=== PATIENT | male | born 1965 | race African-American/Black ===

== ENCOUNTER 2020-05-08 12:21 | Inpatient (IN) | payer OTHER ==
[2020-05-08 12:52] VITALS: BMI 29.4
[2020-05-08] MEDS ORDERED: MAG HYDROX/AL HYDROX/SIMETH 30 ML UNIT-DOSE CUP PO PRN (14:03)
[2020-05-08] MEDS ORDERED: MENTHOL/PHENOL 1 EACH UD MM PRN (14:03)
[2020-05-08] MEDS ORDERED: MAGNESIUM CITRATE 300 ML BOTTLE PO PRN (14:03)
[2020-05-08] MEDS ORDERED: ACETAMINOPHEN 325 MG TABLET (FP) PO PRN ×2 (14:03)
[2020-05-08] MEDS ORDERED: MAGNESIUM HYDROX 2400MG/30ML ORAL SUSPENSION 30 ML CUP PO PRN (14:03)
[2020-05-08] MEDS ORDERED: chlordiazePOXIDE HCL 25 MG CAPSULE PO PRN (14:03)
[2020-05-08] MEDS ORDERED: METHOCARBAMOL 500 MG TABLET PO PRN (14:03)
[2020-05-08] MEDS ORDERED: chlordiazePOXIDE HCL 25 MG CAPSULE PO ONE (14:03)
[2020-05-08] MEDS ORDERED: ONDANSETRON *ODT* 4 MG TABLET SL PRN (14:03)
[2020-05-08] MEDS ORDERED: METHADONE HCL 10 MG TABLET (FOR DETOX USE ONLY) PO ONE (14:03)
[2020-05-08] MEDS ORDERED: ALBUTEROL SO4 HFA INHALER IH PRN (14:09)
[2020-05-08] MEDS ORDERED: PATIENT'S OWN MEDICATION (NON-FORMULARY) (Insulin Lispro [Admelog Solostar] 100 UNIT/ML In SQ SCH (14:15)
[2020-05-08] MEDS: metFORMIN HCL 500 MG TABLET (FP) PO SCH (17:08)
[2020-05-08] MEDS: chlordiazePOXIDE HCL 25 MG CAPSULE PO SCH ×2 (17:08→22:10)
[2020-05-08] MEDS: INSULIN SLIDING SCALE (NOVOLOG) 1 VIAL SQ SCH ×2 (17:11→22:12)
[2020-05-08] MEDS: ISOSORBIDE DINITRATE 10 MG TABLET PO SCH (18:00)
[2020-05-08] MEDS: THIAMINE HCL 100 MG TABLET (FP) PO SCH (22:09)
[2020-05-08] MEDS: ROSUVASTATIN CA 40 MG TABLET PO SCH (22:09)
[2020-05-08] MEDS: MELATONIN 5 MG TABLETS PO SCH (22:11)
[2020-05-08] MEDS: INSULIN (LEVEMIR) 100 UNITS/ML UNITS SQ SCH (22:11)
[2020-05-08] MEDS: FUROSEMIDE 40 MG TABLET (FP) PO SCH (22:11)
[2020-05-08] MEDS: DIVALPROEX SODIUM 250 MG TABLET E.C. PO SCH (22:11)
[2020-05-08] MEDS: hydrALAZINE HCL 10 MG TABLET PO SCH (23:00)
[2020-05-09] MEDS: chlordiazePOXIDE HCL 25 MG CAPSULE PO SCH ×4 (05:27→22:47)
[2020-05-09] MEDS: hydrALAZINE HCL 10 MG TABLET PO SCH ×3 (05:31→22:45)
[2020-05-09] MEDS: metFORMIN HCL 500 MG TABLET (FP) PO SCH ×2 (06:05→17:31)
[2020-05-09] MEDS: INSULIN SLIDING SCALE (NOVOLOG) 1 VIAL SQ SCH ×4 (07:05→22:50)
[2020-05-09] MEDS ORDERED: METHADONE HCL 5 MG TABLET (FOR DETOX USE ONLY) ONE (09:19)
[2020-05-09] MEDS ORDERED: METHADONE HCL 10 MG TABLET (FOR DETOX USE ONLY) ONE (09:20)
[2020-05-09] MEDS ORDERED: METHADONE (DETOX) 20 MG, METHADONE (DETOX) 5 MG PO ONE (10:00)
[2020-05-09] MEDS: PRENATAL VITAMINS W/ FOLIC ACID TABLET (FP) PO SCH (10:34)
[2020-05-09] MEDS: ISOSORBIDE DINITRATE 10 MG TABLET PO SCH ×3 (10:35→19:11)
[2020-05-09] MEDS: ROSUVASTATIN CA 40 MG TABLET PO SCH (10:35)
[2020-05-09] MEDS: DIVALPROEX SODIUM 250 MG TABLET E.C. PO SCH ×2 (10:35→22:46)
[2020-05-09] MEDS: FUROSEMIDE 40 MG TABLET (FP) PO SCH ×2 (10:35→22:45)
[2020-05-09] MEDS ORDERED: INSULIN (NOVOLOG) ASPART 100 UNITS/ML 10ML VIAL ONE ×2 (11:28→19:07)
[2020-05-09 12:49] LABS: HEMATOCRIT 41.6 % (35.4-49); HEMOGLOBIN 13.4 GM/dL (11.7-16.9); MCHC 32.3 g/dl (32.0-35.9); MEAN CELL VOLUME 80.5 fl (80-96); MEAN PLT VOLUME 10.6 fl (7.5-11.1); PLATELET COUNT 113 K/MM3 (134-434); RBC 5.17 M/mm3 (4.00-5.60); RDW 18.7 % (11.9-15.9)
[2020-05-09 12:50] LABS: POTASSIUM 4.6 mmol/L (3.5-5.1)
[2020-05-09 12:59] LABS: BLOOD UREA NITROGEN 13.9 mg/dL (7-18); CALCIUM 8.5 mg/dL (8.5-10.1)
[2020-05-09 13:04] LABS: BILIRUBIN,TOTAL 0.5 mg/dL (0.2-1); TOT PROT 6.5 g/dl (6.4-8.2)
[2020-05-09] MEDS: INSULIN (LEVEMIR) 100 UNITS/ML UNITS SQ SCH (22:45)
[2020-05-09] MEDS: MELATONIN 5 MG TABLETS PO SCH (22:45)
[2020-05-09] MEDS: THIAMINE HCL 100 MG TABLET (FP) PO SCH (22:46)
[2020-05-10] MEDS: chlordiazePOXIDE HCL 25 MG CAPSULE PO SCH ×4 (05:39→22:50)
[2020-05-10] MEDS: hydrALAZINE HCL 10 MG TABLET PO SCH ×3 (05:40→22:34)
[2020-05-10] MEDS: metFORMIN HCL 500 MG TABLET (FP) PO SCH ×2 (07:18→17:40)
[2020-05-10] MEDS: INSULIN SLIDING SCALE (NOVOLOG) 1 VIAL SQ SCH ×4 (07:19→22:26)
[2020-05-10] MEDS: ISOSORBIDE DINITRATE 10 MG TABLET PO SCH ×3 (07:25→18:08)
[2020-05-10] MEDS ORDERED: METHADONE HCL 10 MG TABLET (FOR DETOX USE ONLY) PO ONE (10:00)
[2020-05-10] MEDS: ROSUVASTATIN CA 40 MG TABLET PO SCH (11:12)
[2020-05-10] MEDS: PRENATAL VITAMINS W/ FOLIC ACID TABLET (FP) PO SCH (11:35)
[2020-05-10] MEDS: DIVALPROEX SODIUM 250 MG TABLET E.C. PO SCH ×2 (11:35→22:34)
[2020-05-10] MEDS: FUROSEMIDE 40 MG TABLET (FP) PO SCH ×2 (11:35→22:34)
[2020-05-10 11:48] LABS: EPI CELLS 4 /uL (0-25.1); HYALINE CASTS 0 /uL (0-3.1); URINE APPEARANCE CLEAR; URINE BACTERIA 72 /uL (0-1359); URINE BILIRUBIN NEGATIVE (NEGATIVE); URINE COLOR YELLOW; URINE GLUCOSE (UA) NEGATIVE (NEGATIVE); URINE KETONE NEGATIVE (NEGATIVE); URINE LEUK ESTERASE NEGATIVE (NEGATIVE); URINE NITRITE NEGATIVE (NEGATIVE); URINE PROTEIN 1+ (NEGATIVE); URINE RBC 1 /uL (0-23.9); URINE UROBILINOGEN 0.2 mg/dL (0.2-1.0); URINE WBC 19 /uL (0-25.8)
[2020-05-10] MEDS: ROSUVASTATIN CA 20 MG TABLET (FP) PO SCH (13:19)
[2020-05-10] MEDS ORDERED: LACTULOSE 20 GM/30 ML UDC (FOR ORAL USE ONLY) PO ONE (15:34)
[2020-05-10] MEDS ORDERED: INSULIN (NOVOLOG) ASPART 100 UNITS/ML 10ML VIAL ONE (22:30)
[2020-05-10] MEDS: INSULIN (LEVEMIR) 100 UNITS/ML UNITS SQ SCH (22:32)
[2020-05-10] MEDS: THIAMINE HCL 100 MG TABLET (FP) PO SCH (22:34)
[2020-05-10] MEDS: LACTULOSE 20 GM/30 ML UDC (FOR ORAL USE ONLY) PO SCH (22:36)
[2020-05-10] MEDS: MELATONIN 5 MG TABLETS PO SCH (22:49)
[2020-05-11] MEDS ORDERED: chlordiazePOXIDE HCL 10 MG CAPSULE PO PRN
[2020-05-11] MEDS: hydrALAZINE HCL 10 MG TABLET PO SCH ×3 (06:14→22:38)
[2020-05-11] MEDS: chlordiazePOXIDE HCL 10 MG CAPSULE PO SCH ×4 (06:14→22:38)
[2020-05-11] MEDS: LACTULOSE 20 GM/30 ML UDC (FOR ORAL USE ONLY) PO SCH ×4 (06:14→22:38)
[2020-05-11] MEDS: metFORMIN HCL 500 MG TABLET (FP) PO SCH ×2 (06:15→17:45)
[2020-05-11] MEDS: INSULIN SLIDING SCALE (NOVOLOG) 1 VIAL SQ SCH ×4 (07:10→22:39)
[2020-05-11] MEDS: ISOSORBIDE DINITRATE 10 MG TABLET PO SCH ×3 (08:45→17:50)
[2020-05-11] MEDS ORDERED: METHADONE HCL 5 MG TABLET (FOR DETOX USE ONLY) ONE (09:23)
[2020-05-11] MEDS ORDERED: METHADONE HCL 10 MG TABLET (FOR DETOX USE ONLY) ONE (09:24)
[2020-05-11] MEDS ORDERED: METHADONE (DETOX) 10 MG, METHADONE (DETOX) 5 MG PO ONE (10:00)
[2020-05-11] MEDS: DIVALPROEX SODIUM 250 MG TABLET E.C. PO SCH ×2 (10:41→22:38)
[2020-05-11] MEDS: ASPIRIN 81 MG CHEWABLE TABLETS PO SCH (10:41)
[2020-05-11] MEDS: CLOPIDOGREL BISULFATE 75 MG TABLET (FP) PO SCH (10:41)
[2020-05-11] MEDS: FUROSEMIDE 40 MG TABLET (FP) PO SCH (10:41)
[2020-05-11] MEDS: ROSUVASTATIN CA 20 MG TABLET (FP) PO SCH (10:41)
[2020-05-11] MEDS: PRENATAL VITAMINS W/ FOLIC ACID TABLET (FP) PO SCH (10:43)
[2020-05-11] MEDS ORDERED: INSULIN (NOVOLOG) ASPART 100 UNITS/ML 10ML VIAL ONE ×2 (12:15→17:00)
[2020-05-11 13:53] LABS: INR 0.98 (0.83-1.09); PROTHROMBIN TIME (PATIENT) 12.1 SEC (9.7-13.0)
[2020-05-11 14:19] LABS: POTASSIUM 4.9 mmol/L (3.5-5.1)
[2020-05-11 14:26] LABS: CALCIUM 9.2 mg/dL (8.5-10.1)
[2020-05-11 14:27] LABS: ALBUMIN 3.3 g/dl (3.4-5.0); BLOOD UREA NITROGEN 19.1 mg/dL (7-18)
[2020-05-11 14:30] LABS: BILIRUBIN,TOTAL 0.4 mg/dL (0.2-1); CREATININE 1.2 mg/dL (0.55-1.3); TOT PROT 7.1 g/dl (6.4-8.2)
[2020-05-11] MEDS ORDERED: FUROSEMIDE 40 MG TABLET (FP) PO ONE (18:00)
[2020-05-11] MEDS: INSULIN (LEVEMIR) 100 UNITS/ML UNITS SQ SCH (22:38)
[2020-05-11] MEDS: THIAMINE HCL 100 MG TABLET (FP) PO SCH (22:38)
[2020-05-11] MEDS: MELATONIN 5 MG TABLETS PO SCH (22:39)
[2020-05-12] MEDS: chlordiazePOXIDE HCL 10 MG CAPSULE PO SCH ×2 (06:42→19:04)
[2020-05-12] MEDS: metFORMIN HCL 500 MG TABLET (FP) PO SCH ×2 (06:43→19:02)
[2020-05-12] MEDS: hydrALAZINE HCL 10 MG TABLET PO SCH ×3 (06:43→22:09)
[2020-05-12] MEDS: FUROSEMIDE 40 MG TABLET (FP) PO SCH ×2 (06:44→13:35)
[2020-05-12] MEDS: INSULIN SLIDING SCALE (NOVOLOG) 1 VIAL SQ SCH ×4 (06:47→22:15)
[2020-05-12] MEDS ORDERED: METHADONE HCL 10 MG TABLET (FOR DETOX USE ONLY) PO ONE (10:00)
[2020-05-12] MEDS: ISOSORBIDE DINITRATE 10 MG TABLET PO SCH ×3 (11:07→19:02)
[2020-05-12] MEDS: DIVALPROEX SODIUM 250 MG TABLET E.C. PO SCH ×2 (11:07→22:09)
[2020-05-12] MEDS: LACTULOSE 20 GM/30 ML UDC (FOR ORAL USE ONLY) PO SCH ×4 (11:07→22:08)
[2020-05-12] MEDS: CLOPIDOGREL BISULFATE 75 MG TABLET (FP) PO SCH (11:07)
[2020-05-12] MEDS: PRENATAL VITAMINS W/ FOLIC ACID TABLET (FP) PO SCH (11:07)
[2020-05-12] MEDS: ASPIRIN 81 MG CHEWABLE TABLETS PO SCH (11:07)
[2020-05-12] MEDS: ROSUVASTATIN CA 20 MG TABLET (FP) PO SCH (11:08)
[2020-05-12] MEDS: THIAMINE HCL 100 MG TABLET (FP) PO SCH (22:09)
[2020-05-12] MEDS: MELATONIN 5 MG TABLETS PO SCH (22:09)
[2020-05-12] MEDS: INSULIN (LEVEMIR) 100 UNITS/ML UNITS SQ SCH (22:16)
[2020-05-13] MEDS ORDERED: chlordiazePOXIDE HCL 10 MG CAPSULE PO ONE (05:00)
[2020-05-13] MEDS ORDERED: METHADONE HCL 5 MG TABLET (FOR DETOX USE ONLY) PO ONE (06:00)
[2020-05-13] MEDS: hydrALAZINE HCL 10 MG TABLET PO SCH ×3 (08:05→23:19)
[2020-05-13] MEDS: ISOSORBIDE DINITRATE 10 MG TABLET PO SCH ×3 (08:06→17:55)
[2020-05-13] MEDS: FUROSEMIDE 40 MG TABLET (FP) PO SCH ×2 (08:06→13:16)
[2020-05-13] MEDS: metFORMIN HCL 500 MG TABLET (FP) PO SCH ×2 (08:06→17:52)
[2020-05-13] MEDS: INSULIN SLIDING SCALE (NOVOLOG) 1 VIAL SQ SCH ×4 (08:06→23:21)
[2020-05-13] MEDS: PRENATAL VITAMINS W/ FOLIC ACID TABLET (FP) PO SCH (10:47)
[2020-05-13] MEDS: DIVALPROEX SODIUM 250 MG TABLET E.C. PO SCH ×2 (10:48→23:19)
[2020-05-13] MEDS: ASPIRIN 81 MG CHEWABLE TABLETS PO SCH (10:48)
[2020-05-13] MEDS: CLOPIDOGREL BISULFATE 75 MG TABLET (FP) PO SCH (10:49)
[2020-05-13] MEDS: LACTULOSE 20 GM/30 ML UDC (FOR ORAL USE ONLY) PO SCH ×4 (10:49→23:20)
[2020-05-13] MEDS: ROSUVASTATIN CA 20 MG TABLET (FP) PO SCH (13:16)
[2020-05-13] MEDS ORDERED: INSULIN (NOVOLOG) ASPART 100 UNITS/ML 10ML VIAL ONE ×2 (17:52→23:25)
[2020-05-13] MEDS: THIAMINE HCL 100 MG TABLET (FP) PO SCH (23:19)
[2020-05-13] MEDS: MELATONIN 5 MG TABLETS PO SCH (23:21)
[2020-05-13] MEDS: INSULIN (LEVEMIR) 100 UNITS/ML UNITS SQ SCH (23:21)
[2020-05-14] MEDS: hydrALAZINE HCL 10 MG TABLET PO SCH ×2 (05:21→14:11)
[2020-05-14] MEDS: FUROSEMIDE 40 MG TABLET (FP) PO SCH ×2 (05:21→14:11)
[2020-05-14] MEDS: metFORMIN HCL 500 MG TABLET (FP) PO SCH (06:52)
[2020-05-14] MEDS: INSULIN SLIDING SCALE (NOVOLOG) 1 VIAL SQ SCH ×2 (06:55→11:32)
[2020-05-14] MEDS ORDERED: INSULIN (NOVOLOG) ASPART 100 UNITS/ML 10ML VIAL ONE ×2 (06:55→11:23)
[2020-05-14] MEDS: ISOSORBIDE DINITRATE 10 MG TABLET PO SCH ×2 (08:55→13:10)
[2020-05-14] MEDS: ASPIRIN 81 MG CHEWABLE TABLETS PO SCH (10:12)
[2020-05-14] MEDS: ROSUVASTATIN CA 20 MG TABLET (FP) PO SCH (10:13)
[2020-05-14] MEDS: PRENATAL VITAMINS W/ FOLIC ACID TABLET (FP) PO SCH (10:13)
[2020-05-14] MEDS: DIVALPROEX SODIUM 250 MG TABLET E.C. PO SCH (10:13)
[2020-05-14] MEDS: LACTULOSE 20 GM/30 ML UDC (FOR ORAL USE ONLY) PO SCH ×2 (10:13→14:11)
[2020-05-14] MEDS: CLOPIDOGREL BISULFATE 75 MG TABLET (FP) PO SCH (10:13)
[2020-05-14 14:21] VITALS: BP 158/92; PULSE 101; TEMP 98.3
== END 2020-05-14 14:30 | disposition other institution (70) | DRG 773 ==
LOC: YASAS 12:21 → Y6N 15:17
PROVIDERS: ADMIT Allergy & Immunology; ATTEND Allergy & Immunology
PROC: HZ2ZZZZ Detoxification Services for Substance Abuse Treatment (ICD-10-PCS; principal; 2020-05-08)
DX: F11.23 Opioid dependence with withdrawal (principal); F10.230 Alcohol dependence with withdrawal, uncomplicated; F14.20 Cocaine dependence, uncomplicated; F17.210 Nicotine dependence, cigarettes, uncomplicated; F25.9 Schizoaffective disorder, unspecified; F31.9 Bipolar disorder, unspecified; F19.282 Other psychoactive substance dependence with psychoactive substance-induced sleep disorder; D69.6 Thrombocytopenia, unspecified; E78.5 Hyperlipidemia, unspecified; E11.9 Type 2 diabetes mellitus without complications; Z79.4 Long term (current) use of insulin; I25.10 Atherosclerotic heart disease of native coronary artery without angina pectoris; I11.0 Hypertensive heart disease with heart failure; I50.9 Heart failure, unspecified; Z95.1 Presence of aortocoronary bypass graft; Z95.5 Presence of coronary angioplasty implant and graft; Z95.810 Presence of automatic (implantable) cardiac defibrillator; J44.9 Chronic obstructive pulmonary disease, unspecified; G47.39 Other sleep apnea; M54.5 Low back pain; G89.29 Other chronic pain; R79.89 Other specified abnormal findings of blood chemistry; Z86.69 Personal history of other diseases of the nervous system and sense organs; Z56.0 Unemployment, unspecified; Z59.0 Homelessness
CPT/HCPCS: 36415; 80053; 81003; 82140; 82962; 85027; 85610; 86780; C9803; U0003

== ENCOUNTER 2020-05-14 15:02 | Inpatient (IN) | payer OTHER ==
[2020-05-14] MEDS ORDERED: NICOTINE POLACRILEX 2 MG GUM BUC PRN (15:31)
[2020-05-14] MEDS ORDERED: IBUPROFEN 400 MG TABLET (FP) PO PRN (15:31)
[2020-05-14] MEDS ORDERED: P-EPHED 60MG/TRIPROLIDI 2.5MG TABLET PO PRN (15:31)
[2020-05-14] MEDS ORDERED: ACETAMINOPHEN 325 MG TABLET (FP) PO PRN (15:31)
[2020-05-14] MEDS ORDERED: MENTHOL/PHENOL 1 EACH UD MM PRN (15:31)
[2020-05-14] MEDS ORDERED: MAGNESIUM CITRATE 300 ML BOTTLE PO PRN (15:31)
[2020-05-14] MEDS ORDERED: MAGNESIUM HYDROX 2400MG/30ML ORAL SUSPENSION 30 ML CUP PO PRN (15:31)
[2020-05-14] MEDS ORDERED: guaiFENesin 200 MG/10 ML 10 ML UNIT-DOSE CUPS PO PRN (15:31)
[2020-05-14] MEDS ORDERED: MAG HYDROX/AL HYDROX/SIMETH 30 ML UNIT-DOSE CUP PO PRN (15:31)
[2020-05-14] MEDS ORDERED: LOPERAMIDE HCL 2 MG CAPSULE PO PRN (15:31)
[2020-05-14] MEDS ORDERED: ALBUTEROL SO4 HFA INHALER IH PRN (15:50)
[2020-05-14] MEDS: metFORMIN HCL 500 MG TABLET (FP) PO SCH (16:51)
[2020-05-14] MEDS ORDERED: INSULIN (NOVOLOG) ASPART 100 UNITS/ML 10ML VIAL ONE (16:53)
[2020-05-14] MEDS: INSULIN SLIDING SCALE (NOVOLOG) 1 VIAL SQ SCH ×2 (16:54→21:02)
[2020-05-14] MEDS: LACTULOSE 20 GM/30 ML UDC (FOR ORAL USE ONLY) PO SCH ×2 (17:35→21:01)
[2020-05-14] MEDS ORDERED: ROSUVASTATIN CA 10 MG TABLET (FP) ONE (20:37)
[2020-05-14] MEDS: DIVALPROEX SODIUM 250 MG TABLET E.C. PO SCH (21:00)
[2020-05-14] MEDS: THIAMINE HCL 100 MG TABLET (FP) PO SCH (21:00)
[2020-05-14] MEDS: ISOSORBIDE DINITRATE 10 MG TABLET PO SCH (21:00)
[2020-05-14] MEDS: hydrALAZINE HCL 10 MG TABLET PO SCH (21:01)
[2020-05-14] MEDS: ROSUVASTATIN CA 20 MG TABLET (FP) PO SCH (21:01)
[2020-05-14] MEDS: MELATONIN 5 MG TABLETS PO SCH (21:02)
[2020-05-14] MEDS: INSULIN (LEVEMIR) 100 UNITS/ML UNITS SQ SCH (21:03)
[2020-05-14] MEDS ORDERED: FUROSEMIDE 40 MG TABLET (FP) PO SCH (22:00)
[2020-05-15] MEDS: metFORMIN HCL 500 MG TABLET (FP) PO SCH ×2 (06:21→16:46)
[2020-05-15] MEDS: ISOSORBIDE DINITRATE 10 MG TABLET PO SCH ×3 (06:22→21:10)
[2020-05-15] MEDS: hydrALAZINE HCL 10 MG TABLET PO SCH ×3 (06:22→21:10)
[2020-05-15] MEDS: FUROSEMIDE 40 MG TABLET (FP) PO SCH ×2 (06:22→14:16)
[2020-05-15] MEDS: INSULIN SLIDING SCALE (NOVOLOG) 1 VIAL SQ SCH ×4 (06:23→21:07)
[2020-05-15] MEDS ORDERED: ROSUVASTATIN CA 40 MG TABLET PO SCH (10:00)
[2020-05-15] MEDS: CLOPIDOGREL BISULFATE 75 MG TABLET (FP) PO SCH (10:13)
[2020-05-15] MEDS: NICOTINE 7 MG/24 HOURS TOPICAL PATCH TD SCH (10:13)
[2020-05-15] MEDS: DIVALPROEX SODIUM 250 MG TABLET E.C. PO SCH ×2 (10:13→21:10)
[2020-05-15] MEDS: ASPIRIN 81 MG CHEWABLE TABLETS PO SCH (10:13)
[2020-05-15] MEDS: LACTULOSE 20 GM/30 ML UDC (FOR ORAL USE ONLY) PO SCH ×4 (10:13→21:10)
[2020-05-15] MEDS: PRENATAL VITAMINS W/ FOLIC ACID TABLET (FP) PO SCH (10:14)
[2020-05-15] MEDS ORDERED: INSULIN (NOVOLOG) ASPART 100 UNITS/ML 10ML VIAL ONE ×3 (12:05→22:07)
[2020-05-15] MEDS ORDERED: ROSUVASTATIN CA 10 MG TABLET (FP) ONE (19:34)
[2020-05-15] MEDS: METHOCARBAMOL 500 MG TABLET PO PRN (20:22)
[2020-05-15] MEDS: INSULIN (LEVEMIR) 100 UNITS/ML UNITS SQ SCH (21:06)
[2020-05-15] MEDS: ROSUVASTATIN CA 20 MG TABLET (FP) PO SCH (21:10)
[2020-05-15] MEDS: THIAMINE HCL 100 MG TABLET (FP) PO SCH (21:10)
[2020-05-15] MEDS: hydrOXYzine PAMOATE 25 MG CAPSULE (FP) PO PRN (21:10)
[2020-05-15] MEDS: MELATONIN 5 MG TABLETS PO SCH (21:11)
[2020-05-16] MEDS: hydrALAZINE HCL 10 MG TABLET PO SCH ×3 (07:06→22:06)
[2020-05-16] MEDS: metFORMIN HCL 500 MG TABLET (FP) PO SCH ×2 (07:06→18:35)
[2020-05-16] MEDS: FUROSEMIDE 40 MG TABLET (FP) PO SCH ×2 (07:06→14:16)
[2020-05-16] MEDS: ISOSORBIDE DINITRATE 10 MG TABLET PO SCH ×3 (07:06→22:06)
[2020-05-16] MEDS: INSULIN SLIDING SCALE (NOVOLOG) 1 VIAL SQ SCH ×4 (07:07→22:02)
[2020-05-16] MEDS: PRENATAL VITAMINS W/ FOLIC ACID TABLET (FP) PO SCH (09:41)
[2020-05-16] MEDS: NICOTINE 7 MG/24 HOURS TOPICAL PATCH TD SCH (09:42)
[2020-05-16] MEDS: CLOPIDOGREL BISULFATE 75 MG TABLET (FP) PO SCH (09:42)
[2020-05-16] MEDS: DIVALPROEX SODIUM 250 MG TABLET E.C. PO SCH ×2 (09:42→22:05)
[2020-05-16] MEDS: LACTULOSE 20 GM/30 ML UDC (FOR ORAL USE ONLY) PO SCH ×4 (09:43→22:05)
[2020-05-16] MEDS: ASPIRIN 81 MG CHEWABLE TABLETS PO SCH (09:43)
[2020-05-16] MEDS ORDERED: INSULIN (NOVOLOG) ASPART 100 UNITS/ML 10ML VIAL ONE (11:57)
[2020-05-16] MEDS: INSULIN (LEVEMIR) 100 UNITS/ML UNITS SQ SCH (22:04)
[2020-05-16] MEDS: MELATONIN 5 MG TABLETS PO SCH (22:05)
[2020-05-16] MEDS: hydrOXYzine PAMOATE 25 MG CAPSULE (FP) PO PRN (22:05)
[2020-05-16] MEDS: METHOCARBAMOL 500 MG TABLET PO PRN (22:05)
[2020-05-16] MEDS: THIAMINE HCL 100 MG TABLET (FP) PO SCH (22:06)
[2020-05-16] MEDS: ROSUVASTATIN CA 20 MG TABLET (FP) PO SCH (22:06)
[2020-05-17] MEDS: hydrALAZINE HCL 10 MG TABLET PO SCH ×3 (06:57→21:18)
[2020-05-17] MEDS: metFORMIN HCL 500 MG TABLET (FP) PO SCH ×2 (06:57→16:40)
[2020-05-17] MEDS: ISOSORBIDE DINITRATE 10 MG TABLET PO SCH ×3 (06:57→21:20)
[2020-05-17] MEDS: FUROSEMIDE 40 MG TABLET (FP) PO SCH ×2 (06:58→13:32)
[2020-05-17] MEDS: INSULIN SLIDING SCALE (NOVOLOG) 1 VIAL SQ SCH ×4 (07:06→21:14)
[2020-05-17] MEDS ORDERED: INSULIN (NOVOLOG) ASPART 100 UNITS/ML 10ML VIAL ONE ×3 (07:06→16:35)
[2020-05-17] MEDS: DIVALPROEX SODIUM 250 MG TABLET E.C. PO SCH ×2 (10:26→21:20)
[2020-05-17] MEDS: PRENATAL VITAMINS W/ FOLIC ACID TABLET (FP) PO SCH (10:26)
[2020-05-17] MEDS: CLOPIDOGREL BISULFATE 75 MG TABLET (FP) PO SCH (10:26)
[2020-05-17] MEDS: LACTULOSE 20 GM/30 ML UDC (FOR ORAL USE ONLY) PO SCH ×4 (10:27→21:22)
[2020-05-17] MEDS: ASPIRIN 81 MG CHEWABLE TABLETS PO SCH (10:27)
[2020-05-17] MEDS: NICOTINE 7 MG/24 HOURS TOPICAL PATCH TD SCH (10:27)
[2020-05-17] MEDS: INSULIN (LEVEMIR) 100 UNITS/ML UNITS SQ SCH (21:14)
[2020-05-17] MEDS: THIAMINE HCL 100 MG TABLET (FP) PO SCH (21:18)
[2020-05-17] MEDS: ROSUVASTATIN CA 20 MG TABLET (FP) PO SCH (21:18)
[2020-05-17] MEDS: MELATONIN 5 MG TABLETS PO SCH (21:20)
[2020-05-18] MEDS: FUROSEMIDE 40 MG TABLET (FP) PO SCH ×2 (06:22→14:11)
[2020-05-18] MEDS: ISOSORBIDE DINITRATE 10 MG TABLET PO SCH ×3 (06:22→21:38)
[2020-05-18] MEDS: metFORMIN HCL 500 MG TABLET (FP) PO SCH ×2 (06:22→16:48)
[2020-05-18] MEDS: hydrALAZINE HCL 10 MG TABLET PO SCH ×3 (06:23→21:38)
[2020-05-18] MEDS: INSULIN SLIDING SCALE (NOVOLOG) 1 VIAL SQ SCH ×4 (06:24→21:36)
[2020-05-18] MEDS: DIVALPROEX SODIUM 250 MG TABLET E.C. PO SCH ×2 (10:12→21:38)
[2020-05-18] MEDS: PRENATAL VITAMINS W/ FOLIC ACID TABLET (FP) PO SCH (10:12)
[2020-05-18] MEDS: NICOTINE 7 MG/24 HOURS TOPICAL PATCH TD SCH (10:12)
[2020-05-18] MEDS: CLOPIDOGREL BISULFATE 75 MG TABLET (FP) PO SCH (10:12)
[2020-05-18] MEDS: ASPIRIN 81 MG CHEWABLE TABLETS PO SCH (10:12)
[2020-05-18] MEDS: LACTULOSE 20 GM/30 ML UDC (FOR ORAL USE ONLY) PO SCH ×4 (10:12→21:38)
[2020-05-18] MEDS ORDERED: INSULIN (NOVOLOG) ASPART 100 UNITS/ML 10ML VIAL ONE ×2 (11:35→16:44)
[2020-05-18] MEDS: INSULIN (LEVEMIR) 100 UNITS/ML UNITS SQ SCH (21:37)
[2020-05-18] MEDS: hydrOXYzine PAMOATE 25 MG CAPSULE (FP) PO PRN (21:38)
[2020-05-18] MEDS: ROSUVASTATIN CA 20 MG TABLET (FP) PO SCH (21:38)
[2020-05-18] MEDS: METHOCARBAMOL 500 MG TABLET PO PRN (21:38)
[2020-05-18] MEDS: MELATONIN 5 MG TABLETS PO SCH (21:38)
[2020-05-18] MEDS: THIAMINE HCL 100 MG TABLET (FP) PO SCH (21:38)
[2020-05-19] MEDS: metFORMIN HCL 500 MG TABLET (FP) PO SCH ×2 (06:34→16:35)
[2020-05-19] MEDS: ISOSORBIDE DINITRATE 10 MG TABLET PO SCH ×3 (06:35→21:22)
[2020-05-19] MEDS: FUROSEMIDE 40 MG TABLET (FP) PO SCH ×2 (06:35→14:57)
[2020-05-19] MEDS: hydrALAZINE HCL 10 MG TABLET PO SCH ×3 (06:35→21:22)
[2020-05-19] MEDS: INSULIN SLIDING SCALE (NOVOLOG) 1 VIAL SQ SCH ×4 (06:37→21:27)
[2020-05-19] MEDS: NICOTINE 7 MG/24 HOURS TOPICAL PATCH TD SCH (10:14)
[2020-05-19] MEDS: PRENATAL VITAMINS W/ FOLIC ACID TABLET (FP) PO SCH (10:14)
[2020-05-19] MEDS: LACTULOSE 20 GM/30 ML UDC (FOR ORAL USE ONLY) PO SCH ×4 (10:14→21:23)
[2020-05-19] MEDS: ASPIRIN 81 MG CHEWABLE TABLETS PO SCH (10:14)
[2020-05-19] MEDS: CLOPIDOGREL BISULFATE 75 MG TABLET (FP) PO SCH (10:14)
[2020-05-19] MEDS: DIVALPROEX SODIUM 250 MG TABLET E.C. PO SCH ×2 (10:14→21:22)
[2020-05-19] MEDS ORDERED: INSULIN (NOVOLOG) ASPART 100 UNITS/ML 10ML VIAL ONE (11:58)
[2020-05-19] MEDS ORDERED: ROSUVASTATIN CA 10 MG TABLET (FP) ONE (20:29)
[2020-05-19] MEDS: MELATONIN 5 MG TABLETS PO SCH (21:22)
[2020-05-19] MEDS: ROSUVASTATIN CA 20 MG TABLET (FP) PO SCH (21:22)
[2020-05-19] MEDS: THIAMINE HCL 100 MG TABLET (FP) PO SCH (21:23)
[2020-05-19] MEDS: INSULIN (LEVEMIR) 100 UNITS/ML UNITS SQ SCH (21:26)
[2020-05-20] MEDS: FUROSEMIDE 40 MG TABLET (FP) PO SCH ×2 (06:18→14:51)
[2020-05-20] MEDS: metFORMIN HCL 500 MG TABLET (FP) PO SCH ×2 (06:19→16:58)
[2020-05-20] MEDS: hydrALAZINE HCL 10 MG TABLET PO SCH ×3 (06:19→21:29)
[2020-05-20] MEDS: ISOSORBIDE DINITRATE 10 MG TABLET PO SCH ×3 (06:19→21:28)
[2020-05-20] MEDS: INSULIN SLIDING SCALE (NOVOLOG) 1 VIAL SQ SCH ×4 (07:10→21:36)
[2020-05-20] MEDS: DIVALPROEX SODIUM 250 MG TABLET E.C. PO SCH ×2 (10:19→21:27)
[2020-05-20] MEDS: PRENATAL VITAMINS W/ FOLIC ACID TABLET (FP) PO SCH (10:19)
[2020-05-20] MEDS: LACTULOSE 20 GM/30 ML UDC (FOR ORAL USE ONLY) PO SCH ×4 (10:19→21:30)
[2020-05-20] MEDS: ASPIRIN 81 MG CHEWABLE TABLETS PO SCH (10:19)
[2020-05-20] MEDS: CLOPIDOGREL BISULFATE 75 MG TABLET (FP) PO SCH (10:20)
[2020-05-20] MEDS: NICOTINE 7 MG/24 HOURS TOPICAL PATCH TD SCH (10:20)
[2020-05-20] MEDS: hydrOXYzine PAMOATE 25 MG CAPSULE (FP) PO PRN ×2 (10:20→21:27)
[2020-05-20] MEDS ORDERED: INSULIN (NOVOLOG) ASPART 100 UNITS/ML 10ML VIAL ONE ×4 (12:12→21:44)
[2020-05-20] MEDS: THIAMINE HCL 100 MG TABLET (FP) PO SCH (21:27)
[2020-05-20] MEDS: METHOCARBAMOL 500 MG TABLET PO PRN (21:27)
[2020-05-20] MEDS: MELATONIN 5 MG TABLETS PO SCH (21:28)
[2020-05-20] MEDS: ROSUVASTATIN CA 20 MG TABLET (FP) PO SCH (21:29)
[2020-05-20] MEDS: INSULIN (LEVEMIR) 100 UNITS/ML UNITS SQ SCH (21:39)
[2020-05-20] MEDS ORDERED: INSULIN (LEVEMIR) 100 UNITS/ML UNITS SQ ONE (21:44)
[2020-05-21] MEDS: metFORMIN HCL 500 MG TABLET (FP) PO SCH ×2 (06:18→16:27)
[2020-05-21] MEDS: ISOSORBIDE DINITRATE 10 MG TABLET PO SCH ×3 (06:19→21:38)
[2020-05-21] MEDS: FUROSEMIDE 40 MG TABLET (FP) PO SCH ×2 (06:19→14:25)
[2020-05-21] MEDS: INSULIN SLIDING SCALE (NOVOLOG) 1 VIAL SQ SCH ×4 (06:20→21:42)
[2020-05-21] MEDS: hydrALAZINE HCL 10 MG TABLET PO SCH ×3 (06:20→21:38)
[2020-05-21] MEDS: ASPIRIN 81 MG CHEWABLE TABLETS PO SCH (10:02)
[2020-05-21] MEDS: CLOPIDOGREL BISULFATE 75 MG TABLET (FP) PO SCH (10:02)
[2020-05-21] MEDS: hydrOXYzine PAMOATE 25 MG CAPSULE (FP) PO PRN ×2 (10:02→21:38)
[2020-05-21] MEDS: LACTULOSE 20 GM/30 ML UDC (FOR ORAL USE ONLY) PO SCH ×4 (10:02→21:37)
[2020-05-21] MEDS: DIVALPROEX SODIUM 250 MG TABLET E.C. PO SCH ×2 (10:02→21:39)
[2020-05-21] MEDS: PRENATAL VITAMINS W/ FOLIC ACID TABLET (FP) PO SCH (10:02)
[2020-05-21] MEDS: NICOTINE 7 MG/24 HOURS TOPICAL PATCH TD SCH (10:03)
[2020-05-21] MEDS ORDERED: INSULIN (NOVOLOG) ASPART 100 UNITS/ML 10ML VIAL ONE ×3 (11:43→21:44)
[2020-05-21] MEDS: ROSUVASTATIN CA 20 MG TABLET (FP) PO SCH (21:38)
[2020-05-21] MEDS: THIAMINE HCL 100 MG TABLET (FP) PO SCH (21:39)
[2020-05-21] MEDS: MELATONIN 5 MG TABLETS PO SCH (21:39)
[2020-05-21] MEDS: INSULIN (LEVEMIR) 100 UNITS/ML UNITS SQ SCH (21:45)
[2020-05-22] MEDS: FUROSEMIDE 40 MG TABLET (FP) PO SCH ×2 (06:29→14:12)
[2020-05-22] MEDS: hydrALAZINE HCL 10 MG TABLET PO SCH ×3 (06:29→22:15)
[2020-05-22] MEDS: metFORMIN HCL 500 MG TABLET (FP) PO SCH ×2 (06:29→17:12)
[2020-05-22] MEDS: ISOSORBIDE DINITRATE 10 MG TABLET PO SCH ×3 (06:29→22:14)
[2020-05-22] MEDS: INSULIN SLIDING SCALE (NOVOLOG) 1 VIAL SQ SCH ×4 (06:31→22:14)
[2020-05-22] MEDS: LACTULOSE 20 GM/30 ML UDC (FOR ORAL USE ONLY) PO SCH ×4 (10:54→22:15)
[2020-05-22] MEDS: DIVALPROEX SODIUM 250 MG TABLET E.C. PO SCH ×2 (10:54→22:13)
[2020-05-22] MEDS: ASPIRIN 81 MG CHEWABLE TABLETS PO SCH (10:54)
[2020-05-22] MEDS: CLOPIDOGREL BISULFATE 75 MG TABLET (FP) PO SCH (10:54)
[2020-05-22] MEDS: PRENATAL VITAMINS W/ FOLIC ACID TABLET (FP) PO SCH (10:55)
[2020-05-22] MEDS ORDERED: INSULIN (NOVOLOG) ASPART 100 UNITS/ML 10ML VIAL ONE ×3 (11:57→22:17)
[2020-05-22] MEDS: THIAMINE HCL 100 MG TABLET (FP) PO SCH (22:13)
[2020-05-22] MEDS: MELATONIN 5 MG TABLETS PO SCH (22:14)
[2020-05-22] MEDS: INSULIN (LEVEMIR) 100 UNITS/ML UNITS SQ SCH (22:14)
[2020-05-22] MEDS: ROSUVASTATIN CA 20 MG TABLET (FP) PO SCH (22:19)
[2020-05-23] MEDS: ISOSORBIDE DINITRATE 10 MG TABLET PO SCH ×3 (06:40→23:00)
[2020-05-23] MEDS: INSULIN SLIDING SCALE (NOVOLOG) 1 VIAL SQ SCH ×4 (06:40→21:03)
[2020-05-23] MEDS: metFORMIN HCL 500 MG TABLET (FP) PO SCH ×2 (06:40→16:35)
[2020-05-23] MEDS: FUROSEMIDE 40 MG TABLET (FP) PO SCH ×2 (06:40→14:11)
[2020-05-23] MEDS: hydrALAZINE HCL 10 MG TABLET PO SCH ×3 (06:40→23:00)
[2020-05-23] MEDS ORDERED: INSULIN (NOVOLOG) ASPART 100 UNITS/ML 10ML VIAL ONE ×2 (12:02→21:01)
[2020-05-23] MEDS: DIVALPROEX SODIUM 250 MG TABLET E.C. PO SCH ×2 (12:54→21:00)
[2020-05-23] MEDS: LACTULOSE 20 GM/30 ML UDC (FOR ORAL USE ONLY) PO SCH ×4 (12:54→21:00)
[2020-05-23] MEDS: ASPIRIN 81 MG CHEWABLE TABLETS PO SCH (12:54)
[2020-05-23] MEDS: PRENATAL VITAMINS W/ FOLIC ACID TABLET (FP) PO SCH (12:55)
[2020-05-23] MEDS: CLOPIDOGREL BISULFATE 75 MG TABLET (FP) PO SCH (12:55)
[2020-05-23] MEDS ORDERED: ROSUVASTATIN CA 10 MG TABLET (FP) ONE (19:14)
[2020-05-23] MEDS: MELATONIN 5 MG TABLETS PO SCH (21:00)
[2020-05-23] MEDS: ROSUVASTATIN CA 20 MG TABLET (FP) PO SCH (21:00)
[2020-05-23] MEDS: THIAMINE HCL 100 MG TABLET (FP) PO SCH (21:00)
[2020-05-23] MEDS: INSULIN (LEVEMIR) 100 UNITS/ML UNITS SQ SCH (21:04)
[2020-05-24] MEDS: INSULIN SLIDING SCALE (NOVOLOG) 1 VIAL SQ SCH (06:25)
[2020-05-24] MEDS: ISOSORBIDE DINITRATE 10 MG TABLET PO SCH (06:26)
[2020-05-24] MEDS: hydrALAZINE HCL 10 MG TABLET PO SCH (06:26)
[2020-05-24] MEDS: metFORMIN HCL 500 MG TABLET (FP) PO SCH (06:26)
[2020-05-24] MEDS: FUROSEMIDE 40 MG TABLET (FP) PO SCH (06:26)
[2020-05-24 08:22] VITALS: BP 156/86; PULSE 43; TEMP 97.3
[2020-05-24] MEDS: DIVALPROEX SODIUM 250 MG TABLET E.C. PO SCH (09:14)
[2020-05-24] MEDS: PRENATAL VITAMINS W/ FOLIC ACID TABLET (FP) PO SCH (09:14)
[2020-05-24] MEDS: CLOPIDOGREL BISULFATE 75 MG TABLET (FP) PO SCH (09:14)
[2020-05-24] MEDS: LACTULOSE 20 GM/30 ML UDC (FOR ORAL USE ONLY) PO SCH (09:14)
[2020-05-24] MEDS: ASPIRIN 81 MG CHEWABLE TABLETS PO SCH (09:14)
== END 2020-05-24 09:35 | disposition home or self-care (01) | DRG 772 ==
LOC: YASAS 15:02 → Y5N 15:03
PROVIDERS: ADMIT Allergy & Immunology; ATTEND Allergy & Immunology
PROC: HZ42ZZZ Group Counseling for Substance Abuse Treatment, Cognitive-Behavioral (ICD-10-PCS; principal; 2020-05-14)
DX: F10.20 Alcohol dependence, uncomplicated (principal); F14.20 Cocaine dependence, uncomplicated; F17.210 Nicotine dependence, cigarettes, uncomplicated; F31.9 Bipolar disorder, unspecified; E72.20 Disorder of urea cycle metabolism, unspecified; D69.6 Thrombocytopenia, unspecified; E78.5 Hyperlipidemia, unspecified; E11.9 Type 2 diabetes mellitus without complications; Z79.4 Long term (current) use of insulin; G47.30 Sleep apnea, unspecified; I25.10 Atherosclerotic heart disease of native coronary artery without angina pectoris; I11.0 Hypertensive heart disease with heart failure; I50.9 Heart failure, unspecified; Z95.1 Presence of aortocoronary bypass graft; I25.2 Old myocardial infarction; Z95.810 Presence of automatic (implantable) cardiac defibrillator; J44.9 Chronic obstructive pulmonary disease, unspecified; M54.5 Low back pain; G89.29 Other chronic pain; R56.9 Unspecified convulsions; Z99.89 Dependence on other enabling machines and devices; Z79.02 Long term (current) use of antithrombotics/antiplatelets; S00.03XA Contusion of scalp, initial encounter; W19.XXXA Unspecified fall, initial encounter; Y93.89 Activity, other specified; Y92.239 Unspecified place in hospital as the place of occurrence of the external cause; Y99.8 Other external cause status
CPT/HCPCS: 82140; 82962; C9803; U0003

== ENCOUNTER 2020-05-16 14:17 | Emergency (ER) | payer OTHER ==
[2020-05-16 14:32] VITALS: BMI 29.0
[2020-05-16 15:10] LABS: POTASSIUM 4.6 mmol/L (3.5-5.1)
[2020-05-16 15:13] LABS: ALBUMIN 2.8 g/dl (3.4-5.0); BLOOD UREA NITROGEN 11.1 mg/dL (7-18); CALCIUM 8.6 mg/dL (8.5-10.1)
[2020-05-16 15:17] LABS: EOS % 2.8 % (0-4.5); HEMATOCRIT 37.6 % (35.4-49); HEMOGLOBIN 12.2 GM/dL (11.7-16.9); LYMPH % 23.3 % (8-40); MCH 25.9 pg (25.7-33.7); MCHC 32.4 g/dl (32.0-35.9); MEAN PLT VOLUME 11.4 fl (7.5-11.1); MONO % 14.2 % (3.8-10.2); NEUT % 55.7 % (42.8-82.8); PLATELET COUNT 70 K/MM3 (134-434); RDW 17.7 % (11.9-15.9); WHITE BLOOD COUNT 4.8 K/mm3 (4.0-10.0)
[2020-05-16 15:18] LABS: CHOLESTEROL 214 mg/dL (50-200); TRIGLYCERIDES 137 mg/dL (0-150)
[2020-05-16 15:19] LABS: LDL CHOLESTEROL (ONLY SJRH) 122 mg/dL (5-100); TOT PROT 6.2 g/dl (6.4-8.2)
[2020-05-16 15:20] LABS: HDL CHOLESTEROL 51 mg/dL (40-60)
[2020-05-16 15:23] LABS: INR 0.98 (0.83-1.09); PROTHROMBIN TIME (PATIENT) 11.9 SEC (9.7-13.0)
[2020-05-16 15:25] LABS: ACTIVATED PTT 26.9 SECONDS (25.2-36.5); BILIRUBIN,TOTAL 0.2 mg/dL (0.2-1)
[2020-05-16 20:36] VITALS: BP 139/84; PULSE 90; TEMP 98
== END 2020-05-16 20:37 | disposition home or self-care (01) ==
LOC: JER 14:17
DX: R73.9 Hyperglycemia, unspecified (principal); E78.00 Pure hypercholesterolemia, unspecified; S00.03XA Contusion of scalp, initial encounter
CPT/HCPCS: 36415; 70450-TC; 80053; 80061; 82550; 83721; 84484; 85025; 85610; 85730; 93005; 93010; 99285-25

== ENCOUNTER 2021-01-24 13:58 | Inpatient (IN) | payer OTHER ==
[2021-01-24 16:12] VITALS: BMI 32.5
[2021-01-24] MEDS ORDERED: MAGNESIUM HYDROX 2400MG/30ML ORAL SUSPENSION 30 ML CUP PO PRN (23:24)
[2021-01-24] MEDS ORDERED: MAG HYDROX/AL HYDROX/SIMETH 30 ML UNIT-DOSE CUP PO PRN (23:24)
[2021-01-24] MEDS ORDERED: LOPERAMIDE HCL 2 MG CAPSULE PO PRN (23:24)
[2021-01-24] MEDS ORDERED: MAGNESIUM CITRATE 300 ML BOTTLE PO PRN (23:24)
[2021-01-24] MEDS ORDERED: NICOTINE 10 MG CARTRIDGE (INHALER) IH PRN (23:24)
[2021-01-24] MEDS ORDERED: ACETAMINOPHEN 325 MG TABLET (FP) PO PRN (23:24)
[2021-01-24] MEDS ORDERED: guaiFENesin 200 MG/10 ML 10 ML UNIT-DOSE CUPS PO PRN (23:24)
[2021-01-24] MEDS ORDERED: IBUPROFEN 400 MG TABLET (FP) PO PRN (23:24)
[2021-01-24] MEDS ORDERED: P-EPHED 60MG/TRIPROLIDI 2.5MG TABLET PO PRN (23:24)
[2021-01-24] MEDS ORDERED: ALBUTEROL SO4 HFA INHALER IH PRN (23:26)
[2021-01-25] MEDS: metFORMIN HCL 500 MG TABLET (FP) PO SCH ×3 (01:26→17:39)
[2021-01-25] MEDS: MELATONIN 5 MG TABLETS PO SCH ×2 (03:27→21:59)
[2021-01-25] MEDS: INSULIN SLIDING SCALE (NOVOLOG) 1 VIAL SQ SCH ×4 (06:48→22:03)
[2021-01-25] MEDS: hydrOXYzine PAMOATE 25 MG CAPSULE (FP) PO SCH ×5 (06:49→21:59)
[2021-01-25] MEDS: ASPIRIN 81 MG CHEWABLE TABLETS PO SCH (10:11)
[2021-01-25] MEDS: PRENATAL VITAMINS W/ FOLIC ACID TABLET (FP) PO SCH (10:13)
[2021-01-25] MEDS: NICOTINE 7 MG/24 HOURS TOPICAL PATCH TD SCH ×2 (10:13→10:16)
[2021-01-25 10:20] LABS: HEMATOCRIT 34.7 % (35.4-49); HEMOGLOBIN 11.4 GM/dL (11.7-16.9); MCH 27.5 pg (25.7-33.7); MCHC 32.9 g/dl (32.0-35.9); MEAN CELL VOLUME 83.6 fl (80-96); PLATELET COUNT 78 10^3/uL (134-434); RBC 4.15 M/mm3 (4.00-5.60); RDW 14.9 % (11.9-15.9); WHITE BLOOD COUNT 5.1 K/mm3 (4.0-10.0)
[2021-01-25 10:27] LABS: CALCIUM 8.6 mg/dL (8.5-10.1)
[2021-01-25 10:28] LABS: ALBUMIN 3.4 g/dl (3.4-5.0); BILIRUBIN,TOTAL 0.3 mg/dL (0.2-1); BLOOD UREA NITROGEN 15.5 mg/dL (7-18)
[2021-01-25 10:31] LABS: CREATININE 0.9 mg/dL (0.55-1.3)
[2021-01-25 15:55] LABS: EPI CELLS 8 /uL (0-25.1); HYALINE CASTS 1 /uL (0-3.1); PH,URINE 6.5 (5.0-8.0); URINE APPEARANCE CLEAR; URINE BACTERIA 248 /uL (0-1359); URINE BILIRUBIN NEGATIVE (NEGATIVE); URINE COLOR YELLOW; URINE GLUCOSE (UA) NEGATIVE (NEGATIVE); URINE KETONE NEGATIVE (NEGATIVE); URINE LEUK ESTERASE NEGATIVE (NEGATIVE); URINE NITRITE NEGATIVE (NEGATIVE); URINE PROTEIN 2+ (NEGATIVE); URINE RBC 40 /uL (0-23.9); URINE WBC 11 /uL (0-25.8)
[2021-01-25] MEDS: ENALAPRIL MALEATE 10 MG TABLET PO SCH (17:39)
[2021-01-25] MEDS: ISOSORBIDE DINITRATE 10 MG TABLET PO SCH (18:05)
[2021-01-25] MEDS: THIAMINE HCL 100 MG TABLET (FP) PO SCH (21:59)
[2021-01-26] MEDS: hydrOXYzine PAMOATE 25 MG CAPSULE (FP) PO SCH ×3 (06:47→14:48)
[2021-01-26] MEDS: metFORMIN HCL 500 MG TABLET (FP) PO SCH ×2 (06:47→17:22)
[2021-01-26] MEDS: INSULIN SLIDING SCALE (NOVOLOG) 1 VIAL SQ SCH ×3 (06:47→17:22)
[2021-01-26] MEDS: ISOSORBIDE DINITRATE 10 MG TABLET PO SCH ×3 (07:11→17:51)
[2021-01-26] MEDS: ASPIRIN 81 MG CHEWABLE TABLETS PO SCH (10:40)
[2021-01-26] MEDS: PRENATAL VITAMINS W/ FOLIC ACID TABLET (FP) PO SCH (10:40)
[2021-01-26] MEDS: CLOPIDOGREL BISULFATE 75 MG TABLET (FP) PO SCH (10:40)
[2021-01-26] MEDS: NICOTINE 7 MG/24 HOURS TOPICAL PATCH TD SCH (10:40)
[2021-01-26] MEDS: ENALAPRIL MALEATE 10 MG TABLET PO SCH (10:40)
[2021-01-26] MEDS: hydrALAZINE HCL 10 MG TABLET PO SCH (21:15)
[2021-01-26] MEDS: THIAMINE HCL 100 MG TABLET (FP) PO SCH (21:16)
[2021-01-26] MEDS: ROSUVASTATIN CA 20 MG TABLET (FP) PO SCH (21:16)
[2021-01-26] MEDS: MELATONIN 5 MG TABLETS PO SCH (21:16)
[2021-01-26] MEDS ORDERED: DIVALPROEX SODIUM 250 MG TABLET E.C. PO SCH (22:00)
[2021-01-27] MEDS: hydrALAZINE HCL 10 MG TABLET PO SCH ×3 (06:52→23:54)
[2021-01-27] MEDS: FUROSEMIDE 40 MG TABLET (FP) PO SCH ×2 (06:52→14:10)
[2021-01-27] MEDS: metFORMIN HCL 500 MG TABLET (FP) PO SCH ×2 (06:52→16:35)
[2021-01-27] MEDS: INSULIN SLIDING SCALE (NOVOLOG) 1 VIAL SQ SCH ×2 (06:53→16:37)
[2021-01-27] MEDS: ISOSORBIDE DINITRATE 10 MG TABLET PO SCH ×3 (07:35→17:26)
[2021-01-27] MEDS: CLOPIDOGREL BISULFATE 75 MG TABLET (FP) PO SCH (10:03)
[2021-01-27] MEDS: ENALAPRIL MALEATE 10 MG TABLET PO SCH (10:03)
[2021-01-27] MEDS: PRENATAL VITAMINS W/ FOLIC ACID TABLET (FP) PO SCH (10:03)
[2021-01-27] MEDS: ASPIRIN 81 MG CHEWABLE TABLETS PO SCH (10:03)
[2021-01-27] MEDS: NICOTINE 7 MG/24 HOURS TOPICAL PATCH TD SCH (10:05)
[2021-01-27] MEDS ORDERED: INSULIN (NOVOLOG) ASPART 100 UNITS/ML 10ML VIAL ONE (16:31)
[2021-01-27] MEDS ORDERED: PT OWN MED DRAWER 7, Y5N ONE ×2 (19:51→19:56)
[2021-01-27] MEDS: THIAMINE HCL 100 MG TABLET (FP) PO SCH (23:54)
[2021-01-27] MEDS: MELATONIN 5 MG TABLETS PO SCH (23:54)
[2021-01-27] MEDS: ROSUVASTATIN CA 20 MG TABLET (FP) PO SCH (23:54)
[2021-01-28] MEDS: ISOSORBIDE DINITRATE 10 MG TABLET PO SCH ×3 (07:11→18:15)
[2021-01-28] MEDS: hydrALAZINE HCL 10 MG TABLET PO SCH ×3 (07:11→21:22)
[2021-01-28] MEDS: metFORMIN HCL 500 MG TABLET (FP) PO SCH ×2 (07:13→16:39)
[2021-01-28] MEDS: FUROSEMIDE 40 MG TABLET (FP) PO SCH ×2 (07:13→14:39)
[2021-01-28] MEDS: INSULIN SLIDING SCALE (NOVOLOG) 1 VIAL SQ SCH ×2 (07:15→18:16)
[2021-01-28] MEDS: ENALAPRIL MALEATE 10 MG TABLET PO SCH (09:54)
[2021-01-28] MEDS: PRENATAL VITAMINS W/ FOLIC ACID TABLET (FP) PO SCH (09:54)
[2021-01-28] MEDS: ASPIRIN 81 MG CHEWABLE TABLETS PO SCH (09:55)
[2021-01-28] MEDS: CLOPIDOGREL BISULFATE 75 MG TABLET (FP) PO SCH (09:55)
[2021-01-28] MEDS: NICOTINE 7 MG/24 HOURS TOPICAL PATCH TD SCH (09:55)
[2021-01-28] MEDS ORDERED: PT OWN MED DRAWER 7, Y5N ONE (14:37)
[2021-01-28] MEDS ORDERED: INSULIN (NOVOLOG) ASPART 100 UNITS/ML 10ML VIAL ONE (16:27)
[2021-01-28] MEDS: ROSUVASTATIN CA 20 MG TABLET (FP) PO SCH (21:22)
[2021-01-28] MEDS: THIAMINE HCL 100 MG TABLET (FP) PO SCH (21:22)
[2021-01-28] MEDS: SUVOREXANT 10 MG TABLET PO PRN (22:28)
[2021-01-28] MEDS: hydrOXYzine PAMOATE 25 MG CAPSULE (FP) PO PRN (22:29)
[2021-01-29] MEDS: INSULIN SLIDING SCALE (NOVOLOG) 1 VIAL SQ SCH ×2 (06:32→17:00)
[2021-01-29] MEDS: hydrALAZINE HCL 10 MG TABLET PO SCH ×3 (06:36→22:08)
[2021-01-29] MEDS: metFORMIN HCL 500 MG TABLET (FP) PO SCH ×2 (06:36→16:59)
[2021-01-29] MEDS: FUROSEMIDE 40 MG TABLET (FP) PO SCH ×2 (06:36→13:39)
[2021-01-29] MEDS: ISOSORBIDE DINITRATE 10 MG TABLET PO SCH ×3 (07:17→16:59)
[2021-01-29] MEDS: CLOPIDOGREL BISULFATE 75 MG TABLET (FP) PO SCH (09:41)
[2021-01-29] MEDS: ENALAPRIL MALEATE 10 MG TABLET PO SCH (09:41)
[2021-01-29] MEDS: PRENATAL VITAMINS W/ FOLIC ACID TABLET (FP) PO SCH (09:41)
[2021-01-29] MEDS: NICOTINE 7 MG/24 HOURS TOPICAL PATCH TD SCH (09:42)
[2021-01-29] MEDS: ASPIRIN 81 MG CHEWABLE TABLETS PO SCH (09:42)
[2021-01-29] MEDS: ROSUVASTATIN CA 20 MG TABLET (FP) PO SCH (22:08)
[2021-01-29] MEDS: THIAMINE HCL 100 MG TABLET (FP) PO SCH (22:08)
[2021-01-29] MEDS: SUVOREXANT 10 MG TABLET PO PRN (22:09)
[2021-01-29] MEDS: hydrOXYzine PAMOATE 25 MG CAPSULE (FP) PO PRN (22:10)
[2021-01-30] MEDS: FUROSEMIDE 40 MG TABLET (FP) PO SCH ×2 (06:24→13:58)
[2021-01-30] MEDS: metFORMIN HCL 500 MG TABLET (FP) PO SCH ×2 (06:24→17:02)
[2021-01-30] MEDS: hydrALAZINE HCL 10 MG TABLET PO SCH ×3 (06:24→21:18)
[2021-01-30] MEDS: INSULIN SLIDING SCALE (NOVOLOG) 1 VIAL SQ SCH ×2 (06:26→17:03)
[2021-01-30] MEDS: ISOSORBIDE DINITRATE 10 MG TABLET PO SCH ×3 (07:20→17:02)
[2021-01-30 07:24] VITALS: TEMP 97.8
[2021-01-30] MEDS: ASPIRIN 81 MG CHEWABLE TABLETS PO SCH (09:58)
[2021-01-30] MEDS: PRENATAL VITAMINS W/ FOLIC ACID TABLET (FP) PO SCH (09:58)
[2021-01-30] MEDS: CLOPIDOGREL BISULFATE 75 MG TABLET (FP) PO SCH (09:58)
[2021-01-30] MEDS: ENALAPRIL MALEATE 10 MG TABLET PO SCH (09:58)
[2021-01-30] MEDS: NICOTINE 7 MG/24 HOURS TOPICAL PATCH TD SCH (09:59)
[2021-01-30] MEDS ORDERED: INSULIN (NOVOLOG) ASPART 100 UNITS/ML 10ML VIAL ONE (16:37)
[2021-01-30] MEDS: THIAMINE HCL 100 MG TABLET (FP) PO SCH (21:19)
[2021-01-30] MEDS: ROSUVASTATIN CA 20 MG TABLET (FP) PO SCH (21:19)
[2021-01-30] MEDS: hydrOXYzine PAMOATE 25 MG CAPSULE (FP) PO PRN (21:20)
[2021-01-30] MEDS: SUVOREXANT 10 MG TABLET PO PRN (21:20)
[2021-01-31] MEDS: INSULIN SLIDING SCALE (NOVOLOG) 1 VIAL SQ SCH (06:54)
[2021-01-31] MEDS: metFORMIN HCL 500 MG TABLET (FP) PO SCH (07:51)
[2021-01-31] MEDS: FUROSEMIDE 40 MG TABLET (FP) PO SCH (07:51)
[2021-01-31] MEDS: ISOSORBIDE DINITRATE 10 MG TABLET PO SCH (07:51)
[2021-01-31] MEDS: hydrALAZINE HCL 10 MG TABLET PO SCH (07:52)
[2021-01-31] MEDS: ENALAPRIL MALEATE 10 MG TABLET PO SCH (09:32)
[2021-01-31] MEDS: ASPIRIN 81 MG CHEWABLE TABLETS PO SCH (09:32)
[2021-01-31] MEDS: PRENATAL VITAMINS W/ FOLIC ACID TABLET (FP) PO SCH (09:32)
[2021-01-31] MEDS: NICOTINE 7 MG/24 HOURS TOPICAL PATCH TD SCH (09:32)
[2021-01-31] MEDS: CLOPIDOGREL BISULFATE 75 MG TABLET (FP) PO SCH (09:32)
[2021-01-31 09:40] VITALS: BP 131/68; PULSE 92
== END 2021-01-31 10:50 | disposition home or self-care (01) | DRG 772 ==
LOC: YASAS 13:58 → Y5N 01-25 01:04
PROVIDERS: ADMIT Allergy & Immunology; ATTEND Allergy & Immunology
PROC: HZ42ZZZ Group Counseling for Substance Abuse Treatment, Cognitive-Behavioral (ICD-10-PCS; principal; 2021-01-25)
DX: F10.20 Alcohol dependence, uncomplicated (principal); F11.20 Opioid dependence, uncomplicated; F14.20 Cocaine dependence, uncomplicated; F17.210 Nicotine dependence, cigarettes, uncomplicated; F25.9 Schizoaffective disorder, unspecified; F19.24 Other psychoactive substance dependence with psychoactive substance-induced mood disorder; G47.30 Sleep apnea, unspecified; I25.10 Atherosclerotic heart disease of native coronary artery without angina pectoris; I11.0 Hypertensive heart disease with heart failure; I50.9 Heart failure, unspecified; E78.5 Hyperlipidemia, unspecified; E11.9 Type 2 diabetes mellitus without complications; J44.9 Chronic obstructive pulmonary disease, unspecified; M54.50 Low back pain, unspecified; G89.29 Other chronic pain; Z95.1 Presence of aortocoronary bypass graft; Z79.4 Long term (current) use of insulin; I25.2 Old myocardial infarction; Z86.73 Personal history of transient ischemic attack (TIA), and cerebral infarction without residual deficits; Z99.89 Dependence on other enabling machines and devices; Z56.0 Unemployment, unspecified; Z59.00 Homelessness unspecified
CPT/HCPCS: 36415; 80053; 80164; 81003; 82962; 85027; 86780; 87811; C9803; U0003; U0005

== ENCOUNTER 2021-04-06 14:39 | Inpatient (IN) | payer OTHER ==
[2021-04-06 18:49] VITALS: BMI 29.3
[2021-04-06] MEDS ORDERED: METHOCARBAMOL 500 MG TABLET PO PRN (19:46)
[2021-04-06] MEDS ORDERED: P-EPHED 60MG/TRIPROLIDI 2.5MG TABLET PO PRN (19:46)
[2021-04-06] MEDS ORDERED: hydrOXYzine PAMOATE 25 MG CAPSULE (FP) PO PRN (19:46)
[2021-04-06] MEDS ORDERED: ACETAMINOPHEN 325 MG TABLET (FP) PO PRN ×2 (19:46)
[2021-04-06] MEDS ORDERED: DICYCLOMINE HCL 10 MG CAPSULE PO PRN (19:46)
[2021-04-06] MEDS ORDERED: NALOXONE (NARCAN) HCL 4 MG/0.1 ML SPRAY NS PRN (19:46)
[2021-04-06] MEDS ORDERED: NALOXONE HCL 0.4 MG/ML VIAL IM PRN (19:46)
[2021-04-06] MEDS ORDERED: IBUPROFEN 400 MG TABLET (FP) PO PRN (19:46)
[2021-04-06] MEDS ORDERED: MAG HYDROX/AL HYDROX/SIMETH 30 ML UNIT-DOSE CUP PO PRN (19:46)
[2021-04-06] MEDS ORDERED: ONDANSETRON *ODT* 4 MG TABLET SL PRN (19:46)
[2021-04-06] MEDS ORDERED: MAGNESIUM HYDROX 2400MG/30ML ORAL SUSPENSION 30 ML CUP PO PRN (19:46)
[2021-04-06] MEDS ORDERED: MAGNESIUM CITRATE 300 ML BOTTLE PO PRN (19:46)
[2021-04-06] MEDS ORDERED: BISMUTH SUBSALICYLATE 524 MG/30 ML PO PRN (19:46)
[2021-04-06] MEDS ORDERED: NICOTINE POLACRILEX 2 MG GUM BUC PRN (19:46)
[2021-04-06] MEDS ORDERED: MENTHOL/PHENOL 1 EACH UD MM PRN (19:46)
[2021-04-06] MEDS ORDERED: guaiFENesin 200 MG/10 ML 10 ML UNIT-DOSE CUPS PO PRN (19:46)
[2021-04-06] MEDS ORDERED: ALBUTEROL SO4 HFA INHALER IH PRN (19:58)
[2021-04-06] MEDS ORDERED: MELATONIN 5 MG TABLETS PO SCH (22:00)
[2021-04-06] MEDS ORDERED: THIAMINE HCL 100 MG TABLET (FP) PO SCH (22:00)
[2021-04-07] MEDS: ENALAPRIL MALEATE 10 MG TABLET PO SCH ×2 (00:34→10:49)
[2021-04-07] MEDS: INSULIN (NOVOLOG) ASPART 100 UNITS/ML 10ML VIAL SQ SCH ×3 (06:54→17:02)
[2021-04-07] MEDS ORDERED: NICOTINE 14 MG/24 HOURS TOPICAL PATCH TD SCH (10:00)
[2021-04-07] MEDS ORDERED: PRENATAL VITAMINS W/ FOLIC ACID TABLET (FP) PO SCH (10:00)
[2021-04-07 11:17] LABS: CALCIUM 8.7 mg/dL (8.5-10.1)
[2021-04-07 11:18] LABS: ALBUMIN 3.2 g/dl (3.4-5.0); BLOOD UREA NITROGEN 17.9 mg/dL (7-18)
[2021-04-07 11:20] LABS: BILIRUBIN,TOTAL 0.2 mg/dL (0.2-1); TOT PROT 6.5 g/dl (6.4-8.2)
[2021-04-07 11:29] LABS: HEMATOCRIT 43.4 % (35.4-49); MCH 27.6 pg (25.7-33.7); MCHC 32.2 g/dl (32.0-35.9); MEAN CELL VOLUME 85.5 fl (80-96); MEAN PLT VOLUME 12.1 fl (7.5-11.1); RBC 5.08 M/mm3 (4.00-5.60); WHITE BLOOD COUNT 6.5 K/mm3 (4.0-10.0)
[2021-04-07] MEDS ORDERED: PNEUMOC 13-VAL CONJ-DIP CRM/PF 0.5 ML DISP.SYRIN IM ONE (12:00)
[2021-04-07] MEDS ORDERED: PNEUMOCOCCAL 23 VACCINE 0.5 ML VIAL IM ONE (12:00)
[2021-04-07 12:23] LABS: PLATELET COUNT 81 10^3/uL (134-434)
[2021-04-07] MEDS ORDERED: ASPIRIN 81 MG CHEWABLE TABLETS PO SCH (12:45)
[2021-04-07] MEDS ORDERED: ISOSORBIDE DINITRATE 10 MG TABLET PO ONE (13:50)
[2021-04-07 17:56] VITALS: BP 140/65; PULSE 88; TEMP 98.2
[2021-04-07] MEDS ORDERED: ISOSORBIDE DINITRATE 10 MG TABLET PO SCH (18:00)
[2021-04-07] MEDS ORDERED: INSULIN (LEVEMIR) 100 UNITS/ML UNITS SQ SCH (22:00)
[2021-04-08] MEDS ORDERED: FLU VACC QS2021-22(6MOS UP)/PF 60 MCG/0.5 ML SYRINGE IM ONE (12:00)
== END 2021-04-07 19:00 | disposition other institution (70) | DRG 773 ==
LOC: YASAS 14:39 → Y6N 23:31
PROVIDERS: ADMIT Allergy & Immunology; ATTEND Allergy & Immunology
PROC: HZ2ZZZZ Detoxification Services for Substance Abuse Treatment (ICD-10-PCS; principal; 2021-04-06)
DX: F11.23 Opioid dependence with withdrawal (principal); F10.230 Alcohol dependence with withdrawal, uncomplicated; F14.20 Cocaine dependence, uncomplicated; F17.210 Nicotine dependence, cigarettes, uncomplicated; F31.9 Bipolar disorder, unspecified; F25.9 Schizoaffective disorder, unspecified; F19.24 Other psychoactive substance dependence with psychoactive substance-induced mood disorder; J43.9 Emphysema, unspecified; I25.10 Atherosclerotic heart disease of native coronary artery without angina pectoris; I11.0 Hypertensive heart disease with heart failure; I50.9 Heart failure, unspecified; I25.2 Old myocardial infarction; Z95.1 Presence of aortocoronary bypass graft; Z95.810 Presence of automatic (implantable) cardiac defibrillator; E11.9 Type 2 diabetes mellitus without complications; Z79.4 Long term (current) use of insulin; G47.39 Other sleep apnea; E78.5 Hyperlipidemia, unspecified; M54.50 Low back pain, unspecified; Z56.0 Unemployment, unspecified; G89.29 Other chronic pain
CPT/HCPCS: 36415; 80053; 82962; 85027; 86780; C9803-CS; U0003; U0005

== ENCOUNTER 2021-04-07 18:51 | Inpatient (IN) | payer OTHER ==
[~2021-04-07 18:51] MED LIST: ALBUTEROL SO4 0.083% IH SOL 2.5 MG/3 ML VIAL.NEB. NEB PRN; ALBUTEROL SO4 HFA INHALER IH PRN; IBUPROFEN 400 MG TABLET (FP) PO PRN; LOPERAMIDE HCL 2 MG CAPSULE PO PRN; MAG HYDROX/AL HYDROX/SIMETH 30 ML UNIT-DOSE CUP PO PRN; MAGNESIUM CITRATE 300 ML BOTTLE PO PRN; MAGNESIUM HYDROX 2400MG/30ML ORAL SUSPENSION 30 ML CUP PO PRN; NICOTINE 10 MG CARTRIDGE (INHALER) IH PRN; P-EPHED 60MG/TRIPROLIDI 2.5MG TABLET PO PRN
[2021-04-07] MEDS: CLOPIDOGREL BISULFATE 75 MG TABLET (FP) PO SCH (19:20)
[2021-04-07] MEDS: ISOSORBIDE DINITRATE 10 MG TABLET PO SCH (19:21)
[2021-04-07] MEDS: hydrOXYzine PAMOATE 25 MG CAPSULE (FP) PO SCH ×2 (19:21→21:25)
[2021-04-07] MEDS: MELATONIN 5 MG TABLETS PO SCH (21:25)
[2021-04-07] MEDS: THIAMINE HCL 100 MG TABLET (FP) PO SCH (21:25)
[2021-04-07] MEDS: ACETAMINOPHEN 325 MG TABLET (FP) PO PRN (21:26)
[2021-04-07] MEDS ORDERED: PATIENT'S OWN MEDICATION (NON-FORMULARY) (Isosorbide Dinitrate [Isordil] 10 MG Tablet) PO SCH (22:00)
[2021-04-08] MEDS: hydrOXYzine PAMOATE 25 MG CAPSULE (FP) PO SCH ×4 (06:54→17:35)
[2021-04-08] MEDS: INSULIN SLIDING SCALE (NOVOLOG) 1 VIAL SQ SCH ×3 (07:00→16:47)
[2021-04-08] MEDS: ISOSORBIDE DINITRATE 10 MG TABLET PO SCH ×3 (07:00→17:34)
[2021-04-08] MEDS ORDERED: PATIENT'S OWN MEDICATION (NON-FORMULARY) (Enalapril Maleate [Vasotec] 20 MG Tablet) PO SCH (10:00)
[2021-04-08] MEDS ORDERED: INSULIN (NOVOLOG) ASPART 100 UNITS/ML 10ML VIAL ONE (12:08)
[2021-04-08] MEDS: CLOPIDOGREL BISULFATE 75 MG TABLET (FP) PO SCH (12:09)
[2021-04-08] MEDS: ASPIRIN 81 MG CHEWABLE TABLETS PO SCH (12:09)
[2021-04-08] MEDS: ENALAPRIL MALEATE 10 MG TABLET PO SCH (12:09)
[2021-04-08] MEDS: NICOTINE 7 MG/24 HOURS TOPICAL PATCH TD SCH (12:09)
[2021-04-08] MEDS: PRENATAL VITAMINS W/ FOLIC ACID TABLET (FP) PO SCH (12:09)
[2021-04-09] MEDS: INSULIN SLIDING SCALE (NOVOLOG) 1 VIAL SQ SCH ×5 (00:03→21:41)
[2021-04-09] MEDS: MELATONIN 5 MG TABLETS PO SCH ×2 (00:03→21:36)
[2021-04-09] MEDS: THIAMINE HCL 100 MG TABLET (FP) PO SCH ×2 (00:04→21:36)
[2021-04-09] MEDS: hydrOXYzine PAMOATE 25 MG CAPSULE (FP) PO SCH ×6 (00:04→21:38)
[2021-04-09] MEDS: ASPIRIN 81 MG CHEWABLE TABLETS PO SCH (10:08)
[2021-04-09] MEDS: NICOTINE 7 MG/24 HOURS TOPICAL PATCH TD SCH (10:08)
[2021-04-09] MEDS: ISOSORBIDE DINITRATE 10 MG TABLET PO SCH ×3 (10:08→17:13)
[2021-04-09] MEDS: CLOPIDOGREL BISULFATE 75 MG TABLET (FP) PO SCH (10:08)
[2021-04-09] MEDS: ENALAPRIL MALEATE 10 MG TABLET PO SCH (10:09)
[2021-04-09] MEDS: PRENATAL VITAMINS W/ FOLIC ACID TABLET (FP) PO SCH (10:09)
[2021-04-09] MEDS ORDERED: INSULIN SLIDING SCALE (NOVOLOG) 1 VIAL SQ ONE ×2 (17:10→21:38)
[2021-04-10] MEDS ORDERED: MELATONIN 5 MG TABLETS PO ONE (01:15)
[2021-04-10] MEDS: hydrOXYzine PAMOATE 25 MG CAPSULE (FP) PO SCH ×5 (06:20→22:51)
[2021-04-10] MEDS: INSULIN SLIDING SCALE (NOVOLOG) 1 VIAL SQ SCH ×4 (06:22→22:45)
[2021-04-10] MEDS: guaiFENesin 200 MG/10 ML 10 ML UNIT-DOSE CUPS PO PRN (06:25)
[2021-04-10] MEDS: ISOSORBIDE DINITRATE 10 MG TABLET PO SCH ×3 (07:38→18:27)
[2021-04-10] MEDS: ASPIRIN 81 MG CHEWABLE TABLETS PO SCH (10:49)
[2021-04-10] MEDS: PRENATAL VITAMINS W/ FOLIC ACID TABLET (FP) PO SCH (10:49)
[2021-04-10] MEDS: ENALAPRIL MALEATE 10 MG TABLET PO SCH (10:49)
[2021-04-10] MEDS: CLOPIDOGREL BISULFATE 75 MG TABLET (FP) PO SCH (10:49)
[2021-04-10] MEDS: NICOTINE 7 MG/24 HOURS TOPICAL PATCH TD SCH (10:50)
[2021-04-10] MEDS ORDERED: INSULIN SLIDING SCALE (NOVOLOG) 1 VIAL SQ ONE (11:52)
[2021-04-10] MEDS: MELATONIN 5 MG TABLETS PO SCH (22:50)
[2021-04-10] MEDS: THIAMINE HCL 100 MG TABLET (FP) PO SCH (22:51)
[2021-04-11] MEDS: hydrOXYzine PAMOATE 25 MG CAPSULE (FP) PO SCH ×5 (06:09→21:06)
[2021-04-11] MEDS: INSULIN SLIDING SCALE (NOVOLOG) 1 VIAL SQ SCH ×4 (06:25→21:08)
[2021-04-11] MEDS: guaiFENesin 200 MG/10 ML 10 ML UNIT-DOSE CUPS PO PRN ×2 (06:26→12:43)
[2021-04-11] MEDS: ISOSORBIDE DINITRATE 10 MG TABLET PO SCH ×3 (07:12→17:40)
[2021-04-11] MEDS: NICOTINE 7 MG/24 HOURS TOPICAL PATCH TD SCH (11:07)
[2021-04-11] MEDS: ASPIRIN 81 MG CHEWABLE TABLETS PO SCH (11:07)
[2021-04-11] MEDS: ENALAPRIL MALEATE 10 MG TABLET PO SCH (11:08)
[2021-04-11] MEDS: CLOPIDOGREL BISULFATE 75 MG TABLET (FP) PO SCH (11:08)
[2021-04-11] MEDS: PRENATAL VITAMINS W/ FOLIC ACID TABLET (FP) PO SCH (11:08)
[2021-04-11] MEDS ORDERED: FLU VACC QS2021-22(6MOS UP)/PF 60 MCG/0.5 ML SYRINGE IM ONE (12:00)
[2021-04-11] MEDS ORDERED: MODERNA COVID-19 VACC,MRNA/PF 100 MCG/0.5 ML IM ONE (13:00)
[2021-04-11] MEDS ORDERED: INSULIN (NOVOLOG) ASPART 100 UNITS/ML 10ML VIAL ONE (16:56)
[2021-04-11] MEDS: THIAMINE HCL 100 MG TABLET (FP) PO SCH (21:06)
[2021-04-11] MEDS: MELATONIN 5 MG TABLETS PO SCH (21:06)
[2021-04-12] MEDS: INSULIN SLIDING SCALE (NOVOLOG) 1 VIAL SQ SCH ×3 (06:07→16:45)
[2021-04-12] MEDS: hydrOXYzine PAMOATE 25 MG CAPSULE (FP) PO SCH ×4 (06:07→18:27)
[2021-04-12 07:17] VITALS: TEMP 98.9
[2021-04-12] MEDS: ISOSORBIDE DINITRATE 10 MG TABLET PO SCH ×3 (07:46→18:27)
[2021-04-12] MEDS: NICOTINE 7 MG/24 HOURS TOPICAL PATCH TD SCH (10:34)
[2021-04-12] MEDS: PRENATAL VITAMINS W/ FOLIC ACID TABLET (FP) PO SCH (10:34)
[2021-04-12] MEDS: ENALAPRIL MALEATE 10 MG TABLET PO SCH (10:34)
[2021-04-12] MEDS: ASPIRIN 81 MG CHEWABLE TABLETS PO SCH (10:35)
[2021-04-12] MEDS: CLOPIDOGREL BISULFATE 75 MG TABLET (FP) PO SCH (10:35)
[2021-04-12] MEDS: guaiFENesin 200 MG/10 ML 10 ML UNIT-DOSE CUPS PO PRN (10:36)
[2021-04-12] MEDS: ACETAMINOPHEN 325 MG TABLET (FP) PO PRN (10:38)
[2021-04-12] MEDS ORDERED: INSULIN (NOVOLOG) ASPART 100 UNITS/ML 10ML VIAL ONE (12:07)
[2021-04-12 12:55] VITALS: BP 156/78; PULSE 111
[2021-04-12] MEDS ORDERED: ALBUTEROL SO4 0.083% IH SOL 2.5 MG/3 ML VIAL.NEB. NEB PRN (16:12)
== END 2021-04-12 18:44 | disposition left against medical advice (07) | DRG 770 ==
LOC: YASAS 18:51 → Y3E 18:52 → Y3W 04-08 15:08 → Y5N 04-10 13:12
PROVIDERS: ADMIT Allergy & Immunology; ATTEND Allergy & Immunology
PROC: HZ42ZZZ Group Counseling for Substance Abuse Treatment, Cognitive-Behavioral (ICD-10-PCS; principal; 2021-04-07)
DX: F10.20 Alcohol dependence, uncomplicated (principal); F14.20 Cocaine dependence, uncomplicated; F17.210 Nicotine dependence, cigarettes, uncomplicated; F31.9 Bipolar disorder, unspecified; I10 Essential (primary) hypertension; J44.9 Chronic obstructive pulmonary disease, unspecified; E11.9 Type 2 diabetes mellitus without complications; Z79.84 Long term (current) use of oral hypoglycemic drugs
CPT/HCPCS: 0011A; 82962; 90686; 91301; C9803; G0008; U0003; U0005

== ENCOUNTER 2021-06-28 12:35 | Inpatient (IN) | payer OTHER ==
[2021-06-28] MEDS ORDERED: MAGNESIUM HYDROX 2400MG/30ML ORAL SUSPENSION 30 ML CUP PO PRN (13:14)
[2021-06-28] MEDS ORDERED: chlordiazePOXIDE HCL 25 MG CAPSULE PO PRN (13:14)
[2021-06-28] MEDS ORDERED: methaDONE HCL 10 MG TABLET (FOR DETOX USE ONLY) PO ONE (13:14)
[2021-06-28] MEDS ORDERED: MAGNESIUM CITRATE 300 ML BOTTLE PO PRN (13:14)
[2021-06-28] MEDS ORDERED: MAG HYDROX/AL HYDROX/SIMETH 30 ML UNIT-DOSE CUP PO PRN (13:14)
[2021-06-28] MEDS ORDERED: ACETAMINOPHEN 325 MG TABLET (FP) PO PRN ×2 (13:14)
[2021-06-28] MEDS ORDERED: LOPERAMIDE HCL 2 MG CAPSULE PO PRN (13:14)
[2021-06-28] MEDS ORDERED: METHOCARBAMOL 500 MG TABLET PO PRN (13:14)
[2021-06-28] MEDS ORDERED: ONDANSETRON *ODT* 4 MG TABLET SL PRN (13:14)
[2021-06-28] MEDS ORDERED: DICYCLOMINE HCL 10 MG CAPSULE PO PRN (13:14)
[2021-06-28] MEDS ORDERED: cloNIDine HCL 0.1 MG TABLET PO PRN (13:14)
[2021-06-28] MEDS ORDERED: BISMUTH SUBSALICYLATE 524 MG/30 ML PO PRN (13:14)
[2021-06-28] MEDS ORDERED: MENTHOL/PHENOL 1 EACH UD MM PRN (13:14)
[2021-06-28] MEDS ORDERED: IBUPROFEN 400 MG TABLET (FP) PO PRN (13:14)
[2021-06-28 15:54] VITALS: BMI 28.4
[2021-06-28 17:14] LABS: HEMATOCRIT 34.3 % (35.4-49); MCH 26.9 pg (25.7-33.7); MEAN CELL VOLUME 83.9 fl (80-96); MEAN PLT VOLUME 10.9 fl (7.5-11.1); PLATELET COUNT 80 10^3/uL (134-434); RBC 4.09 M/mm3 (4.00-5.60); RDW 16.1 % (11.9-15.9); WHITE BLOOD COUNT 4.7 K/mm3 (4.0-10.0)
[2021-06-28 17:20] LABS: ALBUMIN 2.8 g/dl (3.4-5.0)
[2021-06-28 17:21] LABS: CALCIUM 8.1 mg/dL (8.5-10.1)
[2021-06-28 17:22] LABS: BLOOD UREA NITROGEN 16.7 mg/dL (7-18)
[2021-06-28 17:23] LABS: CREATININE 0.9 mg/dL (0.55-1.3)
[2021-06-28 17:25] LABS: BILIRUBIN,TOTAL 0.5 mg/dL (0.2-1); TOT PROT 6.7 g/dl (6.4-8.2)
[2021-06-28] MEDS: metFORMIN HCL 500 MG TABLET (FP) PO SCH (17:25)
[2021-06-28] MEDS ORDERED: ALBUTEROL SO4 HFA INHALER IH ONE (17:25)
[2021-06-28] MEDS: ISOSORBIDE DINITRATE 10 MG TABLET PO SCH ×3 (17:30→17:47)
[2021-06-28] MEDS: hydrALAZINE HCL 10 MG TABLET PO SCH ×2 (17:30→22:29)
[2021-06-28] MEDS: PRENATAL VITAMINS W/ FOLIC ACID TABLET (FP) PO SCH (17:33)
[2021-06-28] MEDS: hydrOXYzine PAMOATE 25 MG CAPSULE (FP) PO SCH ×3 (17:34→22:29)
[2021-06-28] MEDS: ALBUTEROL SO4 HFA INHALER IH PRN (22:24)
[2021-06-28] MEDS: DIVALPROEX SODIUM 250 MG TABLET E.C. PO SCH (22:29)
[2021-06-28] MEDS: THIAMINE HCL 100 MG TABLET (FP) PO SCH (22:29)
[2021-06-28] MEDS: MELATONIN 5 MG TABLETS PO SCH (22:30)
[2021-06-28] MEDS: chlordiazePOXIDE HCL 25 MG CAPSULE PO SCH (22:30)
[2021-06-29] MEDS: chlordiazePOXIDE HCL 25 MG CAPSULE PO SCH ×4 (05:34→22:11)
[2021-06-29] MEDS: hydrALAZINE HCL 10 MG TABLET PO SCH ×3 (05:34→22:12)
[2021-06-29] MEDS: hydrOXYzine PAMOATE 25 MG CAPSULE (FP) PO SCH ×5 (06:50→22:12)
[2021-06-29] MEDS: metFORMIN HCL 500 MG TABLET (FP) PO SCH ×2 (07:24→17:59)
[2021-06-29] MEDS: ISOSORBIDE DINITRATE 10 MG TABLET PO SCH ×3 (07:25→17:59)
[2021-06-29] MEDS ORDERED: methaDONE HCL 10 MG TABLET (FOR DETOX USE ONLY) ONE (08:33)
[2021-06-29] MEDS: PRENATAL VITAMINS W/ FOLIC ACID TABLET (FP) PO SCH (10:10)
[2021-06-29] MEDS: DIVALPROEX SODIUM 250 MG TABLET E.C. PO SCH ×2 (10:12→22:12)
[2021-06-29] MEDS: ENALAPRIL MALEATE 10 MG TABLET PO SCH (10:12)
[2021-06-29] MEDS: ASPIRIN 81 MG CHEWABLE TABLETS PO SCH (10:12)
[2021-06-29] MEDS: CLOPIDOGREL BISULFATE 75 MG TABLET (FP) PO SCH (10:12)
[2021-06-29] MEDS: THIAMINE HCL 100 MG TABLET (FP) PO SCH (22:12)
[2021-06-29] MEDS: MELATONIN 5 MG TABLETS PO SCH (22:12)
[2021-06-30] MEDS: hydrALAZINE HCL 10 MG TABLET PO SCH ×3 (06:50→22:22)
[2021-06-30] MEDS: hydrOXYzine PAMOATE 25 MG CAPSULE (FP) PO SCH ×5 (06:50→22:24)
[2021-06-30] MEDS: metFORMIN HCL 500 MG TABLET (FP) PO SCH ×2 (06:50→17:57)
[2021-06-30] MEDS: chlordiazePOXIDE HCL 25 MG CAPSULE PO SCH ×5 (06:50→22:24)
[2021-06-30] MEDS: ISOSORBIDE DINITRATE 10 MG TABLET PO SCH ×3 (07:15→18:20)
[2021-06-30] MEDS ORDERED: methaDONE HCL 10 MG TABLET (FOR DETOX USE ONLY) PO ONE (10:00)
[2021-06-30] MEDS: CLOPIDOGREL BISULFATE 75 MG TABLET (FP) PO SCH (10:29)
[2021-06-30] MEDS: DIVALPROEX SODIUM 250 MG TABLET E.C. PO SCH ×2 (10:29→22:22)
[2021-06-30] MEDS: ASPIRIN 81 MG CHEWABLE TABLETS PO SCH (10:29)
[2021-06-30] MEDS: PRENATAL VITAMINS W/ FOLIC ACID TABLET (FP) PO SCH (10:30)
[2021-06-30] MEDS: ENALAPRIL MALEATE 10 MG TABLET PO SCH (10:30)
[2021-06-30 14:08] LABS: SARS-CoV-2 NAA Not Detected (Not Detected)
[2021-06-30] MEDS: MELATONIN 5 MG TABLETS PO SCH (22:22)
[2021-06-30] MEDS: THIAMINE HCL 100 MG TABLET (FP) PO SCH (22:22)
[2021-06-30] MEDS: ALBUTEROL SO4 HFA INHALER IH PRN (23:50)
[2021-07-01] MEDS ORDERED: chlordiazePOXIDE HCL 10 MG CAPSULE PO PRN
[2021-07-01] MEDS: hydrOXYzine PAMOATE 25 MG CAPSULE (FP) PO SCH ×4 (05:45→20:17)
[2021-07-01] MEDS: chlordiazePOXIDE HCL 10 MG CAPSULE PO SCH ×4 (05:46→22:45)
[2021-07-01] MEDS: hydrALAZINE HCL 10 MG TABLET PO SCH ×3 (05:47→22:45)
[2021-07-01] MEDS: ISOSORBIDE DINITRATE 10 MG TABLET PO SCH ×3 (07:40→19:47)
[2021-07-01] MEDS: metFORMIN HCL 500 MG TABLET (FP) PO SCH ×2 (07:40→18:22)
[2021-07-01] MEDS ORDERED: methaDONE HCL 10 MG TABLET (FOR DETOX USE ONLY) ONE (08:52)
[2021-07-01] MEDS: PRENATAL VITAMINS W/ FOLIC ACID TABLET (FP) PO SCH (10:44)
[2021-07-01] MEDS: DIVALPROEX SODIUM 250 MG TABLET E.C. PO SCH ×2 (10:44→22:45)
[2021-07-01] MEDS: CLOPIDOGREL BISULFATE 75 MG TABLET (FP) PO SCH (10:44)
[2021-07-01] MEDS: ENALAPRIL MALEATE 10 MG TABLET PO SCH (10:44)
[2021-07-01] MEDS: ASPIRIN 81 MG CHEWABLE TABLETS PO SCH (10:48)
[2021-07-01] MEDS: MELATONIN 5 MG TABLETS PO SCH (22:44)
[2021-07-01] MEDS: THIAMINE HCL 100 MG TABLET (FP) PO SCH (22:45)
[2021-07-02] MEDS ORDERED: chlordiazePOXIDE HCL 10 MG CAPSULE PO SCH (05:00)
[2021-07-02 06:58] VITALS: BP 132/64; PULSE 96; TEMP 98.2
[2021-07-02] MEDS ORDERED: methaDONE HCL 10 MG TABLET (FOR DETOX USE ONLY) PO ONE (10:00)
[2021-07-03] MEDS ORDERED: chlordiazePOXIDE HCL 10 MG CAPSULE PO ONE (05:00)
== END 2021-07-02 07:04 | disposition left against medical advice (07) | DRG 770 ==
LOC: YASAS 12:35 → Y6N 15:45 → Y3N 15:46
PROVIDERS: ADMIT Allergy & Immunology; ATTEND Allergy & Immunology
PROC: HZ2ZZZZ Detoxification Services for Substance Abuse Treatment (ICD-10-PCS; principal; 2021-06-28)
DX: F11.23 Opioid dependence with withdrawal (principal); F14.20 Cocaine dependence, uncomplicated; F10.230 Alcohol dependence with withdrawal, uncomplicated; F17.213 Nicotine dependence, cigarettes, with withdrawal; F31.9 Bipolar disorder, unspecified; G47.30 Sleep apnea, unspecified; I25.10 Atherosclerotic heart disease of native coronary artery without angina pectoris; I10 Essential (primary) hypertension; I25.2 Old myocardial infarction; Z95.1 Presence of aortocoronary bypass graft; J43.9 Emphysema, unspecified; E11.9 Type 2 diabetes mellitus without complications; Z79.84 Long term (current) use of oral hypoglycemic drugs; Z99.89 Dependence on other enabling machines and devices
CPT/HCPCS: 36415; 80053; 82962; 85027; 86780; C9803-CS; U0003; U0005

== ENCOUNTER 2021-07-28 17:43 | Inpatient (IN) | payer OTHER ==
[2021-07-28 18:36] VITALS: BMI 26.1
[2021-07-28] MEDS ORDERED: BISMUTH SUBSALICYLATE 524 MG/30 ML PO PRN (19:59)
[2021-07-28] MEDS ORDERED: MAGNESIUM CITRATE 300 ML BOTTLE PO PRN (19:59)
[2021-07-28] MEDS ORDERED: MAGNESIUM HYDROX 2400MG/30ML ORAL SUSPENSION 30 ML CUP PO PRN (19:59)
[2021-07-28] MEDS ORDERED: LOPERAMIDE HCL 2 MG CAPSULE PO PRN (19:59)
[2021-07-28] MEDS ORDERED: BENZOCAINE/MENTHOL (CHLORASEPTIC ) LOZENGE MM PRN (19:59)
[2021-07-28] MEDS ORDERED: ACETAMINOPHEN 325 MG TABLET (FP) PO PRN ×2 (19:59)
[2021-07-28] MEDS ORDERED: ONDANSETRON *ODT* 4 MG TABLET SL PRN (19:59)
[2021-07-28] MEDS ORDERED: MAG HYDROX/AL HYDROX/SIMETH 30 ML UNIT-DOSE CUP PO PRN (19:59)
[2021-07-28] MEDS ORDERED: NICOTINE 10 MG CARTRIDGE (INHALER) IH PRN (19:59)
[2021-07-28] MEDS ORDERED: DICYCLOMINE HCL 10 MG CAPSULE PO PRN (19:59)
[2021-07-28] MEDS ORDERED: IBUPROFEN 400 MG TABLET (FP) PO PRN (19:59)
[2021-07-28] MEDS ORDERED: methaDONE HCL 10 MG TABLET (FOR DETOX USE ONLY) PO ONE (22:05)
[2021-07-28] MEDS ORDERED: diazePAM 5 MG TABLET PO PRN (22:06)
[2021-07-28] MEDS ORDERED: METHOCARBAMOL 500 MG TABLET ONE (22:07)
[2021-07-28] MEDS ORDERED: IBUPROFEN 400 MG TABLET (FP) PO ONE (22:07)
[2021-07-28] MEDS: METHOCARBAMOL 500 MG TABLET PO PRN (22:12)
[2021-07-28] MEDS: diazePAM 5 MG TABLET PO SCH (22:28)
[2021-07-29] MEDS: ASPIRIN 325 MG TABLET PO SCH ×2 (05:31→09:48)
[2021-07-29] MEDS: DIVALPROEX SODIUM 250 MG TABLET E.C. PO SCH ×3 (05:32→22:53)
[2021-07-29] MEDS: THIAMINE HCL 100 MG TABLET (FP) PO SCH ×2 (05:34→22:53)
[2021-07-29] MEDS: diazePAM 5 MG TABLET PO SCH ×4 (05:38→22:53)
[2021-07-29] MEDS ORDERED: hydrOXYzine PAMOATE 25 MG CAPSULE (FP) PO ONE (06:10)
[2021-07-29] MEDS ORDERED: cloNIDine HCL 0.1 MG TABLET ONE (06:10)
[2021-07-29] MEDS ORDERED: METHOCARBAMOL 500 MG TABLET ONE (06:10)
[2021-07-29] MEDS: INSULIN SLIDING SCALE (NOVOLOG) 1 VIAL SQ SCH ×3 (06:35→17:30)
[2021-07-29] MEDS: cloNIDine HCL 0.1 MG TABLET PO PRN ×2 (06:36→17:33)
[2021-07-29] MEDS: hydrOXYzine PAMOATE 25 MG CAPSULE (FP) PO PRN (06:37)
[2021-07-29] MEDS ORDERED: INSULIN (NOVOLOG) ASPART 100 UNITS/ML 10ML VIAL ONE (08:46)
[2021-07-29] MEDS ORDERED: methaDONE HCL 10 MG TABLET (FOR DETOX USE ONLY) ONE (09:43)
[2021-07-29] MEDS ORDERED: diazePAM 5 MG TABLET ONE (09:43)
[2021-07-29] MEDS ORDERED: ASPIRIN 81 MG CHEWABLE TABLETS ONE (09:43)
[2021-07-29] MEDS: FUROSEMIDE 40 MG TABLET (FP) PO SCH (09:49)
[2021-07-29] MEDS: FOLIC ACID 1 MG TABLET (FP) PO SCH (09:49)
[2021-07-29] MEDS: ENALAPRIL MALEATE 10 MG TABLET PO SCH (09:49)
[2021-07-29 09:50] LABS: CALCIUM 8.6 mg/dL (8.5-10.1)
[2021-07-29] MEDS: ISOSORBIDE MONONITRATE 30 MG TAB.SR.24H (FP) PO SCH (09:51)
[2021-07-29 09:52] LABS: HEMATOCRIT 36.5 % (35.4-49); HEMOGLOBIN 11.6 GM/dL (11.7-16.9); MCH 25.9 pg (25.7-33.7); MCHC 31.8 g/dl (32.0-35.9); MEAN CELL VOLUME 81.6 fl (80-96); MEAN PLT VOLUME 10.5 fl (7.5-11.1); PLATELET COUNT 100 10^3/uL (134-434); RBC 4.47 M/mm3 (4.00-5.60); RDW 17.3 % (11.9-15.9)
[2021-07-29 09:54] LABS: CREATININE 1.1 mg/dL (0.55-1.3)
[2021-07-29 09:55] LABS: BILIRUBIN,TOTAL 0.3 mg/dL (0.2-1)
[2021-07-29] MEDS: PRENATAL VITAMINS W/ FOLIC ACID TABLET (FP) PO SCH (12:14)
[2021-07-30] MEDS: diazePAM 5 MG TABLET PO SCH ×3 (05:50→22:34)
[2021-07-30] MEDS: INSULIN SLIDING SCALE (NOVOLOG) 1 VIAL SQ SCH ×2 (07:52→16:57)
[2021-07-30] MEDS ORDERED: methaDONE HCL 10 MG TABLET (FOR DETOX USE ONLY) PO ONE (10:00)
[2021-07-30] MEDS: PRENATAL VITAMINS W/ FOLIC ACID TABLET (FP) PO SCH (10:40)
[2021-07-30] MEDS: DIVALPROEX SODIUM 250 MG TABLET E.C. PO SCH ×2 (10:40→22:34)
[2021-07-30] MEDS: METHOCARBAMOL 500 MG TABLET PO PRN (10:40)
[2021-07-30] MEDS: ENALAPRIL MALEATE 10 MG TABLET PO SCH (10:40)
[2021-07-30] MEDS: FUROSEMIDE 40 MG TABLET (FP) PO SCH (13:00)
[2021-07-30] MEDS: ISOSORBIDE MONONITRATE 30 MG TAB.SR.24H (FP) PO SCH (13:01)
[2021-07-30] MEDS: ASPIRIN 325 MG TABLET PO SCH (13:02)
[2021-07-30] MEDS: FOLIC ACID 1 MG TABLET (FP) PO SCH (14:23)
[2021-07-30] MEDS: THIAMINE HCL 100 MG TABLET (FP) PO SCH (22:34)
[2021-07-31] MEDS: diazePAM 5 MG TABLET PO SCH ×2 (05:48→18:05)
[2021-07-31] MEDS: INSULIN SLIDING SCALE (NOVOLOG) 1 VIAL SQ SCH ×2 (07:01→17:00)
[2021-07-31] MEDS ORDERED: methaDONE HCL 10 MG TABLET (FOR DETOX USE ONLY) ONE (09:11)
[2021-07-31] MEDS: DIVALPROEX SODIUM 250 MG TABLET E.C. PO SCH ×2 (10:25→22:47)
[2021-07-31] MEDS: FOLIC ACID 1 MG TABLET (FP) PO SCH (10:25)
[2021-07-31] MEDS: METHOCARBAMOL 500 MG TABLET PO PRN (10:25)
[2021-07-31] MEDS: hydrOXYzine PAMOATE 25 MG CAPSULE (FP) PO PRN ×2 (10:25→18:05)
[2021-07-31] MEDS: ASPIRIN 81 MG CHEWABLE TABLETS PO SCH (10:25)
[2021-07-31] MEDS: FUROSEMIDE 40 MG TABLET (FP) PO SCH (10:25)
[2021-07-31] MEDS: PRENATAL VITAMINS W/ FOLIC ACID TABLET (FP) PO SCH (10:25)
[2021-07-31] MEDS: ENALAPRIL MALEATE 10 MG TABLET PO SCH (10:25)
[2021-07-31] MEDS: ISOSORBIDE MONONITRATE 30 MG TAB.SR.24H (FP) PO SCH (10:27)
[2021-07-31] MEDS: metFORMIN HCL 500 MG TABLET (FP) PO SCH (18:05)
[2021-07-31] MEDS: MELATONIN 5 MG TABLETS PO PRN (22:47)
[2021-07-31] MEDS: THIAMINE HCL 100 MG TABLET (FP) PO SCH (22:47)
[2021-08-01 00:06] LABS: SARS-CoV-2 NAA Not Detected (Not Detected)
[2021-08-01] MEDS ORDERED: diazePAM 5 MG TABLET PO ONE (06:00)
[2021-08-01] MEDS: metFORMIN HCL 500 MG TABLET (FP) PO SCH ×2 (06:36→16:52)
[2021-08-01] MEDS: INSULIN SLIDING SCALE (NOVOLOG) 1 VIAL SQ SCH ×2 (06:42→16:09)
[2021-08-01] MEDS ORDERED: methaDONE HCL 10 MG TABLET (FOR DETOX USE ONLY) PO ONE (10:00)
[2021-08-01] MEDS: PRENATAL VITAMINS W/ FOLIC ACID TABLET (FP) PO SCH (10:47)
[2021-08-01] MEDS: FUROSEMIDE 40 MG TABLET (FP) PO SCH (10:48)
[2021-08-01] MEDS: DIVALPROEX SODIUM 250 MG TABLET E.C. PO SCH ×2 (10:48→22:15)
[2021-08-01] MEDS: ENALAPRIL MALEATE 10 MG TABLET PO SCH (10:48)
[2021-08-01] MEDS: ISOSORBIDE MONONITRATE 30 MG TAB.SR.24H (FP) PO SCH (10:48)
[2021-08-01] MEDS: ASPIRIN 81 MG CHEWABLE TABLETS PO SCH (10:48)
[2021-08-01] MEDS: FOLIC ACID 1 MG TABLET (FP) PO SCH (12:39)
[2021-08-01] MEDS: MELATONIN 5 MG TABLETS PO PRN (22:15)
[2021-08-01] MEDS: THIAMINE HCL 100 MG TABLET (FP) PO SCH (22:15)
[2021-08-02] MEDS: metFORMIN HCL 500 MG TABLET (FP) PO SCH (06:51)
[2021-08-02] MEDS: INSULIN SLIDING SCALE (NOVOLOG) 1 VIAL SQ SCH (06:51)
[2021-08-02] MEDS ORDERED: ALBUTEROL SO4 HFA INHALER IH PRN (09:06)
[2021-08-02] MEDS ORDERED: ALBUTEROL SO4 0.083% IH SOL 2.5 MG/3 ML VIAL.NEB. NEB PRN (09:06)
[2021-08-02 09:49] VITALS: BP 119/71; PULSE 81; TEMP 96.9
[2021-08-02] MEDS ORDERED: BUDESONIDE/FORMETEROL FUMARATE 80/4.5 mcg INHALER IH SCH (10:00)
[2021-08-02] MEDS: ASPIRIN 81 MG CHEWABLE TABLETS PO SCH (10:06)
[2021-08-02] MEDS: PRENATAL VITAMINS W/ FOLIC ACID TABLET (FP) PO SCH (10:06)
[2021-08-02] MEDS: DIVALPROEX SODIUM 250 MG TABLET E.C. PO SCH (10:06)
[2021-08-02] MEDS: ENALAPRIL MALEATE 10 MG TABLET PO SCH (10:06)
[2021-08-02] MEDS: FUROSEMIDE 40 MG TABLET (FP) PO SCH (10:07)
[2021-08-02] MEDS: ISOSORBIDE MONONITRATE 30 MG TAB.SR.24H (FP) PO SCH (10:07)
[2021-08-02] MEDS: FOLIC ACID 1 MG TABLET (FP) PO SCH (10:07)
== END 2021-08-02 12:46 | disposition home or self-care (01) | DRG 773 ==
LOC: YASAS 17:43 → Y6N 07-29 11:38
PROVIDERS: ADMIT Allergy & Immunology; ATTEND Allergy & Immunology
PROC: HZ2ZZZZ Detoxification Services for Substance Abuse Treatment (ICD-10-PCS; principal; 2021-07-29)
DX: F11.23 Opioid dependence with withdrawal (principal); F10.230 Alcohol dependence with withdrawal, uncomplicated; F14.20 Cocaine dependence, uncomplicated; F17.210 Nicotine dependence, cigarettes, uncomplicated; F31.81 Bipolar II disorder; J43.9 Emphysema, unspecified; I25.10 Atherosclerotic heart disease of native coronary artery without angina pectoris; I10 Essential (primary) hypertension; Z95.1 Presence of aortocoronary bypass graft; G47.30 Sleep apnea, unspecified; E78.5 Hyperlipidemia, unspecified; E11.9 Type 2 diabetes mellitus without complications; Z79.84 Long term (current) use of oral hypoglycemic drugs
CPT/HCPCS: 36415; 80053; 82962; 85027; 86780; C9803-CS; J0735; U0003; U0005